=== PATIENT | male | born 1970 | race Caucasian/White ===

== ENCOUNTER 2017-05-31 06:47 | Emergency (ER) | payer MEDICAID, OTHER ==
[2017-05-31] VITALS (7 sets, daily range): BP systolic 97–170; BP diastolic 52–79; PULSE 73–100; RESP 16–22; TEMP 98.2–99.9; O2SAT 95–99
[~2017-05-31] VITALS: Ht 177.8 cm; Wt 99.0 kg
[~2017-05-31 06:47] MED LIST: FERR1TAB36 PO; PROT40TA PO; ZIPR80CA PO
--- NOTE | 2017-05-31 07:18 | PD ---
HPI Chief Complaint: Psychiatric Symptoms Time Seen by Provider: 07:13 Travel History International Travel<30 days: No Contact w/Intl Traveler<30days: No History of Present Illness HPI 46-year-old male brought in under the XYDO act with history of schizophrenic paranoia. Patient called the police himself, stating that he wanted to kill himself but everyone else. Patient has been off his meds for quite some time. He is psychotic, and combative. He is placed in restraints upon arrival. He is an unreliable historian he is allergic to Haldol, and benztropine. PFSH Past Medical History Autoimmune Disease: No Anxiety: No Depression: No Heart Rhythm Problems: No Cancer: No Cardiovascular Problems: No High Cholesterol: No Chest Pain: No Congestive Heart Failure: No Diminished Hearing: No Endocrine: No Gastrointestinal Disorders: No Genitourinary: No Immune Disorder: No Implanted Vascular Access Dvce: No Musculoskeletal: No Neurologic: No Psychiatric: Yes (schizophrenia) Reproductive: No Respiratory: No Schizophrenia: Yes Past Surgical History Abdominal Surgery: No AICD: No Arteriovenous Shunt: No Cardiac Surgery: No Ear Surgery: No Endocrine Surgery: No Genitourinary Surgery: No Gynecologic Surgery: No Insulin Pump: No Joint Replacement: No Neurologic Surgery: No Oral Surgery: No Pacemaker: No Thoracic Surgery: No Other Surgery: Yes (LEFT EYE REMOVED AGE 8, bleeding ulcer repaired ) Social History Alcohol Use: No Tobacco Use: No (never) Substance Use: No Allergies-Medications (Allergen,Severity, Reaction): Coded Allergies: benztropine (Unverified Allergy, Severe, 05/31/17) haloperidol (Unverified Allergy, Severe, 05/31/17) Reported Meds & Prescriptions Reported Meds & Active Scripts Active Protonix (Pantoprazole Sodium) 40 Mg Tab 40 Mg PO BID Reported Ziprasidone 80 Mg Cap 80 Mg PO BID Review of Systems ROS Limitations: Combative, Psychotic Except as stated in HPI: all other systems reviewed are Neg General / Constitutional: No: Fever Eyes: No: Visual changes HENT: No: Headaches Cardiovascular: No: Chest Pain or Discomfort Respiratory: No: Shortness of Breath Gastrointestinal: No: Abdominal Pain Genitourinary: No: Dysuria Musculoskeletal: No: Pain Skin: No Rash Neurologic: No: Weakness Psychiatric: No: Depression Endocrine: No: Polydipsia Hematologic/Lymphatic: No: Easy Bruising Physical Exam Exam Limitations: Combative, Psychotic Narrative GENERAL: Patient appears psychotic and having delusions with pressured speech. SKIN: Warm and dry. Normal color. Normal turgor. No signs of trauma. HEAD: Atraumatic. Normocephalic. EYES: Pupils equal and round. No scleral icterus. Patient is blind in the left eye. ENT: No nasal bleeding or discharge. Mucous membranes pink and moist. Pharynx is clear. Airway is patent. NECK: Trachea midline. Supple. CARDIOVASCULAR: Regular rate and rhythm. RESPIRATORY: No accessory muscle use. Clear to auscultation. Breath sounds equal bilaterally. MUSCULOSKELETAL: Extremities without clubbing, cyanosis, or edema. No obvious deformities. NEUROLOGICAL: Awake and alert. No obvious cranial nerve deficits. Motor grossly within normal limits. Five out of 5 muscle strength in the arms and legs. Normal speech. Data Data Last Documented VS Vital Signs Date Time Temp Pulse Resp B/P (MAP) Pulse Ox O2 Delivery O2 Flow Rate FiO2 05/31/17 09:46 80 18 114/65 (81) 98 Room Air 05/31/17 07:13 99.9 Orders Orders Complete Blood Count With Diff (05/31/17 07:18) Comprehensive Metabolic Panel (05/31/17 07:18) Thyroid Stimulating Hormone (05/31/17 07:18) Iv Access Insert/Monitor (05/31/17 07:18) Cath For Specimen (05/31/17 07:18) Psych Screen (05/31/17 07:18) Sodium Chloride 0.9% Flush (Ns Flush) (05/31/17 07:30) Lorazepam Inj (Ativan Inj) (05/31/17 07:30) Restraints Violent (05/31/17 07:18) Drug Screen, Random Urine (05/31/17 07:18) Alcohol (Ethanol) (05/31/17 07:18) Olanzapine Inj (Zyprexa Inj) (05/31/17 07:30) Labs Laboratory Tests Test 05/31/17 07:45 05/31/17 09:00 White Blood Count 8.4 TH/MM3 Red Blood Count 3.73 MIL/MM3 Hemoglobin 10.5 GM/DL Hematocrit 31.7 % Mean Corpuscular Volume 85.1 FL Mean Corpuscular Hemoglobin 28.1 PG Mean Corpuscular Hemoglobin Concent 33.1 % Red Cell Distribution Width 19.0 % Platelet Count 217 TH/MM3 Mean Platelet Volume 8.3 FL Neutrophils (%) (Auto) 80.4 % Lymphocytes (%) (Auto) 9.0 % Monocytes (%) (Auto) 10.0 % Eosinophils (%) (Auto) 0.4 % Basophils (%) (Auto) 0.2 % Neutrophils # (Auto) 6.7 TH/MM3 Lymphocytes # (Auto) 0.7 TH/MM3 Monocytes # (Auto) 0.8 TH/MM3 Eosinophils # (Auto) 0.0 TH/MM3 Basophils # (Auto) 0.0 TH/MM3 CBC Comment DIFF FINAL Differential Comment Blood Urea Nitrogen 17 MG/DL Creatinine 0.90 MG/DL Random Glucose 83 MG/DL Total Protein 7.7 GM/DL Albumin 4.1 GM/DL Calcium Level 9.5 MG/DL Alkaline Phosphatase 123 U/L Aspartate Amino Transf (AST/SGOT) 33 U/L Alanine Aminotransferase (ALT/SGPT) 34 U/L Total Bilirubin 0.4 MG/DL Sodium Level 142 MEQ/L Potassium Level 4.2 MEQ/L Chloride Level 112 MEQ/L Carbon Dioxide Level 22.0 MEQ/L Anion Gap 8 MEQ/L Estimat Glomerular Filtration Rate 92 ML/MIN Thyroid Stimulating Hormone 3rd Gen 1.880 uIU/ML Ethyl Alcohol Level LESS THAN 3 MG/DL Urine Opiates Screen NEG Urine Barbiturates Screen NEG Urine Amphetamines Screen POS Urine Benzodiazepines Screen NEG Urine Cocaine Screen NEG Urine Cannabinoids Screen NEG MDM Medical Decision Making Medical Screen Exam Complete: Yes Emergency Medical Condition: Yes Medical Record Reviewed: Yes Differential Diagnosis Psychosis. Delusions. Combative. Suicidal ideation. Narrative Course Patient appears medically stable at time of exam. Psychiatric labs ordered as per protocol. Patient was placed in restraints upon arrival. These are maintained. IV access is obtained and the patient is given 2 mg lorazepam IV as well as 10 mg Zyprexa IM. Diagnosis Primary Impression: Medical clearance for psychiatric admission Condition: Stable Blair Hanks May 31, 2017 07:18
[2017-05-31] MEDS ORDERED: LORazepam 2 MG/ML VIAL IV PUSH ONE ×2 (07:30→14:00)
[2017-05-31] MEDS ORDERED: SODIUM CHLORIDE 0.9% FLUSH 10 ML FLUSH IVF PRN (07:30)
[2017-05-31] MEDS ORDERED: OLANZapine IM 10 MG VIAL IM ONE (07:30)
[2017-05-31 08:15] LABS: AUTOMATED NEUTROPHIL # 6.7 TH/MM3 (1.8-7.7); BASOPHIL % 0.2 % (0.0-2.0); EOSINOPHIL % 0.4 % (0.0-4.0); HEMATOCRIT 31.7 % (39.0-51.0); HEMOGLOBIN 10.5 GM/DL (13.0-17.0); LYMPHOCYTE # 0.7 TH/MM3 (1.0-4.8); MEAN CELL VOLUME 85.1 FL (80.0-100.0); MEAN CORPUSCULAR HEMOGLOBIN 28.1 PG (27.0-34.0); MEAN CORPUSCULAR HGB CONC 33.1 % (32.0-36.0); MEAN PLATELET VOLUME 8.3 FL (7.0-11.0); MONOCYTE # 0.8 TH/MM3 (0-0.9); NEUT % 80.4 % (16.0-70.0); PLATELET COUNT 217 TH/MM3 (150-450); RED BLOOD COUNT 3.73 MIL/MM3 (4.50-5.90); WHITE BLOOD COUNT 8.4 TH/MM3 (4.0-11.0)
[2017-05-31] MEDS ORDERED: ZIPR1CAP12 PO (08:25)
[2017-05-31 08:36] LABS: ALBUMIN 4.1 GM/DL (3.4-5.0); ALT (GPT) 34 U/L (12-78); AST (GOT) 33 U/L (15-37); BLOOD UREA NITROGEN 17 MG/DL (7-18); CALCIUM 9.5 MG/DL (8.5-10.1); CHLORIDE 112 MEQ/L (98-107); GLOMERULAR FILTRATION RATE 92 ML/MIN (>89); GLUCOSE,RANDOM 83 MG/DL (74-106); SODIUM (NA) 142 MEQ/L (136-145)
[2017-05-31 08:46] LABS: ALKALINE PHOSPHATASE 123 U/L (45-117); TOTAL BILIRUBIN ADULT 0.4 MG/DL (0.2-1.0); TOTAL PROTEIN 7.7 GM/DL (6.4-8.2)
[2017-05-31] MEDS ORDERED: ONDANSETRON ODT 4 MG TAB PO ONE (23:15)
[2017-06-01 05:40] VITALS: BP 100/57; PULSE 67; RESP 18; TEMP 97.8; O2SAT 100
--- NOTE | 2017-06-01 15:32 | PD ---
Physical Exam Date Seen by Provider: Jun 01, 2017 Time Seen by Provider: 15:31 Narrative 46-year-old male previously medically clear for psychiatric evaluation has been seen and evaluated by psychiatric staff and deemed psychiatrically safe for discharge. He remains medically stable at this time. Follow-up is as per psychiatric note Data Data Last Documented VS Vital Signs Date Time Temp Pulse Resp B/P (MAP) Pulse Ox O2 Delivery O2 Flow Rate FiO2 06/01/17 05:40 97.8 67 18 100/57 (71) 100 Room Air Orders Orders Complete Blood Count With Diff (05/31/17 07:18) Comprehensive Metabolic Panel (05/31/17 07:18) Thyroid Stimulating Hormone (05/31/17 07:18) Iv Access Insert/Monitor (05/31/17 07:18) Cath For Specimen (05/31/17 07:18) Psych Screen (05/31/17 07:18) Sodium Chloride 0.9% Flush (Ns Flush) (05/31/17 07:30) Lorazepam Inj (Ativan Inj) (05/31/17 07:30) Restraints Violent (05/31/17 07:18) Drug Screen, Random Urine (05/31/17 07:18) Alcohol (Ethanol) (05/31/17 07:18) Olanzapine Inj (Zyprexa Inj) (05/31/17 07:30) Lorazepam Inj (Ativan Inj) (05/31/17 14:00) Diet Regular Basic (05/31/17 Dinner) Ondansetron Odt (Zofran Odt) (05/31/17 23:15) Hydroxyzine Pamoate (Vistaril) (05/31/17 23:15) Hydroxyzine Pamoate (Vistaril) (05/31/17 23:15) Diet Regular Basic (06/01/17 Breakfast) Diet Regular Basic (06/01/17 Lunch) Labs Laboratory Tests Test 05/31/17 07:45 05/31/17 09:00 White Blood Count 8.4 TH/MM3 Red Blood Count 3.73 MIL/MM3 Hemoglobin 10.5 GM/DL Hematocrit 31.7 % Mean Corpuscular Volume 85.1 FL Mean Corpuscular Hemoglobin 28.1 PG Mean Corpuscular Hemoglobin Concent 33.1 % Red Cell Distribution Width 19.0 % Platelet Count 217 TH/MM3 Mean Platelet Volume 8.3 FL Neutrophils (%) (Auto) 80.4 % Lymphocytes (%) (Auto) 9.0 % Monocytes (%) (Auto) 10.0 % Eosinophils (%) (Auto) 0.4 % Basophils (%) (Auto) 0.2 % Neutrophils # (Auto) 6.7 TH/MM3 Lymphocytes # (Auto) 0.7 TH/MM3 Monocytes # (Auto) 0.8 TH/MM3 Eosinophils # (Auto) 0.0 TH/MM3 Basophils # (Auto) 0.0 TH/MM3 CBC Comment DIFF FINAL Differential Comment Blood Urea Nitrogen 17 MG/DL Creatinine 0.90 MG/DL Random Glucose 83 MG/DL Total Protein 7.7 GM/DL Albumin 4.1 GM/DL Calcium Level 9.5 MG/DL Alkaline Phosphatase 123 U/L Aspartate Amino Transf (AST/SGOT) 33 U/L Alanine Aminotransferase (ALT/SGPT) 34 U/L Total Bilirubin 0.4 MG/DL Sodium Level 142 MEQ/L Potassium Level 4.2 MEQ/L Chloride Level 112 MEQ/L Carbon Dioxide Level 22.0 MEQ/L Anion Gap 8 MEQ/L Estimat Glomerular Filtration Rate 92 ML/MIN Thyroid Stimulating Hormone 3rd Gen 1.880 uIU/ML Ethyl Alcohol Level LESS THAN 3 MG/DL Urine Opiates Screen NEG Urine Barbiturates Screen NEG Urine Amphetamines Screen POS Urine Benzodiazepines Screen NEG Urine Cocaine Screen NEG Urine Cannabinoids Screen NEG MDM Medical Record Reviewed: Yes Supervised Visit with MALIKA: Yes Narrative Course 46-year-old male previously medically clear for psychiatric evaluation has been seen and evaluated by psychiatric staff and deemed psychiatrically safe for discharge. He remains medically stable at this time. Follow-up is as per psychiatric note Diagnosis Primary Impression: Medical clearance for psychiatric admission Disposition: DISCHARGE HOME Condition: Stable Blair Hanks Jun 01, 2017 15:32
--- NOTE | 2017-06-01 15:45 | PD ---
History of Present Illness Chief Complaint: Psychiatric Symptoms Time Seen by Provider: 15:00 Travel History International Travel<30 Days: No Contact w/Intl Traveler<30days: No Known affected area: No Legal Status Legal Status: [place] Act [place] Act Signed By: Wilmar Little History of Present Illness: History of Present Illness HPI 46-year-old male with history of schizophrenia who is brought in under the [place] act initiated by law enforcement. The [place] act states " subject made statements of wanting to kill himself and others. Subject stated that he is schizophrenic and can't take it anymore." Other information provided were is that the patient's mother called the police earlier in the morning stating that the patient was locked in the house and that she was afraid of him and was going to stay with family members and another town. She reported to police that he was supposed to appear in court Friday morning but he did not appear in court. The patient on arrival to [facility] ED was agitated and required ETO as well as restraints. After receiving the ETO the patient was monitored in J pod over extended period of time. He slept well during the night. He has presented no other behavioral concerns and no suicidality. Electronic medical record is review the patient has been seen and evaluated in our ED in 2008. At that time he was taken to [facility] for further treatment. Toxicology report at this time is positive for amphetamines. Patient is seen in J pod with Elena Carver RN present. The patient is alert, oriented, calm, engaging and cooperative. The patient's speech is clear, logical, goal-directed. His thoughts are logical, organized. He does not appear internally stimulated and denies auditory hallucinations. The patient states that the reason why he was placed under [place] act was because he was having thoughts of suicide and homicide, and he attributes this to not having taken his meds for a couple of days. He goes on to state" if I miss a dose or several doses I go off my rocker. I left my medication and my friend's house and was involved in an argument with them so I can go back for them." He tells me that he is compliant with his medications for the most part and that he sees Alcides at [facility]. The patient minimizes his use of methamphetamine. He is currently denying any suicidal or homicidal ideation, intent or plan. He states that he is not a danger to himself or to anyone else. He has plans on returning to an apartment that he shares with some roommates. He also plans on following up with his outpatient provider at [facility]. PFSH Past Medical History Autoimmune Disease: No Anxiety: No Depression: No Heart Rhythm Problems: No Cancer: No Cardiovascular Problems: No High Cholesterol: No Chest Pain: No Congestive Heart Failure: No Diminished Hearing: No Endocrine: No Gastrointestinal Disorders: No Genitourinary: No Hypertension: No Immune Disorder: No Implanted Vascular Access Dvce: No Musculoskeletal: No Neurologic: No Psychiatric: Yes (schizophrenia) Reproductive: No Respiratory: No Schizophrenia: Yes ?: Not Past Surgical History Abdominal Surgery: No AICD: No Arteriovenous Shunt: No Cardiac Surgery: No Ear Surgery: No Endocrine Surgery: No Genitourinary Surgery: No Gynecologic Surgery: No Insulin Pump: No Joint Replacement: No Neurologic Surgery: No Oral Surgery: No Pacemaker: No Thoracic Surgery: No Other Surgery: Yes (LEFT EYE REMOVED AGE 8, bleeding ulcer repaired ) Psychiatric History Psychiatric History Hx Psychiatric Treatment: HAS HISTORY COSTA IKE IN 2001 AND 2002 AND last contact in 2008. Receives outpatient care at [facility] and sees Alcides. History of Inpatient Treatment: Yes ([facility]) Guns or firearms in home: No Social History Single, male living with roommates. On disability. Recent incarceration for driving with a suspended license. Hx Alcohol Use: No Hx Tobacco Use: No (never) Hx Substance Use: Yes Substance Use Type: Amphetamines-Stimulants Hx of Substance Use Treatment: No Family Psychiatric History Negative Allergies-Medications (Allergen,Severity, Reaction): Coded Allergies: benztropine (Unverified Allergy, Severe, 05/31/17) haloperidol (Unverified Allergy, Severe, 05/31/17) Reported Meds & Prescriptions Reported Meds & Active Scripts Active Protonix (Pantoprazole Sodium) 40 Mg Tab 40 Mg PO BID Reported Ziprasidone 80 Mg Cap 80 Mg PO BID Review of Systems Eyes: COMPLAINS OF: Vision loss (left eye prosthesis) Psychiatric: COMPLAINS OF: Agitation Except as stated in HPI: all other systems reviewed are Neg Mental Status Examination Appearance: Disheveled, Malodorous Consciousness: Alert Orientation: x4 Motor Activity: Normal gait Speech: Unremarkable Language: Adequate Fund of Knowledge: Adequate Attention and Concentration: Adequate Memory: Unremarkable Mood: Appropriate Affect: Appropriate Thought Process & Associations: Intact, Logical, Goal directed Thought Content: Appropriate Hallucination Type: None Delusion Type: None Suicidal Ideation: No Suicidal Plan: No Suicidal Intention: No Homicidal Ideation: No Homicidal Plan: No Homicidal Intention: No Insight: Fair Judgment: Impulsive MDM Medical Decision Making Medical Record Reviewed: Yes Assessment/Plan 46-year-old male with history of schizophrenia, history of substance use disorder, most recently use of methamphetamine, who was placed under [place] act after the police were called by the patient's mother stating that the patient was locked in the house and that she was afraid of him. The patient reported to the police that he wanted to kill himself and others. The statements were made when the patient was under the influence of methamphetamine as well as reporting that he had not taken his psychiatric medication. The patient upon arrival was agitated and required ETO's. After extended period of observation in [facility] he presented no further behavioral concerns and no agitation. There was no suicidality. Upon examination this afternoon the patient presents no psychosis, no tavia, no suicidal or homicidal ideation. He contracts for safety and is cognitively intact to do so. He will follow-up with Alcides at [facility]. He has medications with him and he states that he intends on taking them. At this time he does not meet criteria for Costa act. The Costa act is lifted. Psychiatrically clear for discharge from the ED. Orders Orders Diet Regular Basic (05/31/17 Dinner) Ondansetron Odt (Zofran Odt) (05/31/17 23:15) Hydroxyzine Pamoate (Vistaril) (05/31/17 23:15) Hydroxyzine Pamoate (Vistaril) (05/31/17 23:15) Diet Regular Basic (06/01/17 Breakfast) Diet Regular Basic (06/01/17 Lunch) Results Vital Signs Date Time Temp Pulse Resp B/P (MAP) Pulse Ox O2 Delivery O2 Flow Rate FiO2 06/01/17 05:40 97.8 67 18 100/57 (71) 100 Room Air 05/31/17 20:55 98.2 73 16 97/52 (67) 95 Room Air 05/31/17 18:16 98.6 77 16 109/55 (73) 98 Room Air 05/31/17 16:17 78 18 122/67 (85) 98 Diagnosis Primary Impression: Amphetamine abuse Additional Impression: Schizophrenia Psychiatrically Cleared: Yes Med/ Other Pt Specific Info: No Change to Meds Disposition: 01 DISCHARGE HOME Condition: Stable Problem Qualifiers Additional Impression: Schizophrenia Qualified Codes: F20.9 - Schizophrenia, unspecified Marybeth Elise [facility] Jun 01, 2017 15:45
== END 2017-06-01 15:39 | disposition home or self-care (01) ==
LOC: NEPD 06:47 → NEPJ 06-01 15:39
DX: F20.9 Schizophrenia, unspecified (principal); F15.10 Other stimulant abuse, uncomplicated; Z79.899 Other long term (current) drug therapy; Z88.8 Allergy status to other drugs, medicaments and biological substances
CPT/HCPCS: 80053; 80307; 84443; 85025; 96372; 96374; 96376; 99284; J2060

== ENCOUNTER 2017-08-12 12:52 | Inpatient (IN) | payer MEDICAID, OTHER ==
[2017-08-12] VITALS (40 sets, daily range): BP systolic 79–135; BP diastolic 48–87; PULSE 80–159; RESP 7–26; TEMP 97–98.4; O2SAT 86–100
[~2017-08-12] VITALS: Ht 182.9 cm; Wt 75.5 kg
[~2017-08-12 12:52] MED LIST changes: -FERR1TAB36 PO; +ZIPR1CAP12 PO; -ZIPR80CA PO
[2017-08-12] MEDS ORDERED: PANTOPRAZOLE INJ 80 MG in SODIUM CHLORIDE 0.9% INJ 35 ML IV ONE ×2 (13:19→15:15)
[2017-08-12] MEDS ORDERED: SODIUM CHLOR 0.9% 1000 ML INJ 1,000 ML IV SCH (13:19)
[2017-08-12] MEDS ORDERED: SODIUM CHLORIDE 0.9% FLUSH 10 ML FLUSH IVF PRN (13:30)
[2017-08-12] MEDS ORDERED: GEOD80CA PO (13:31)
[2017-08-12 13:36] LABS: AUTOMATED NEUTROPHIL # 11.2 TH/MM3 (1.8-7.7); BASOPHIL % 0.1 % (0.0-2.0); EOSINOPHIL % 0.1 % (0.0-4.0); HEMATOCRIT 22.7 % (39.0-51.0); LYMPH % 6.1 % (9.0-44.0); LYMPHOCYTE # 0.8 TH/MM3 (1.0-4.8); MEAN CELL VOLUME 77.9 FL (80.0-100.0); MEAN CORPUSCULAR HEMOGLOBIN 23.9 PG (27.0-34.0); MEAN CORPUSCULAR HGB CONC 30.8 % (32.0-36.0); MEAN PLATELET VOLUME 7.8 FL (7.0-11.0); MONO % 7.1 % (0.0-8.0); MONOCYTE # 0.9 TH/MM3 (0-0.9); NEUT % 86.6 % (16.0-70.0); PLATELET COUNT 295 TH/MM3 (150-450); RED BLOOD COUNT 2.91 MIL/MM3 (4.50-5.90); RED CELL DISTRIBUTION WIDTH 17.4 % (11.6-17.2); WHITE BLOOD COUNT 12.9 TH/MM3 (4.0-11.0)
[2017-08-12 13:53] LABS: INTERNATIONAL NORMALIZED RATIO 1.1 RATIO; PROTHROMBIN TIME - PATIENT 11.4 SEC (9.8-11.6)
[2017-08-12 13:55] LABS: ALBUMIN 2.8 GM/DL (3.4-5.0); AST (GOT) 12 U/L (15-37); BICARBONATE 18.1 MEQ/L (21.0-32.0); BLOOD UREA NITROGEN 28 MG/DL (7-18); CALCIUM 9.4 MG/DL (8.5-10.1); CHLORIDE 107 MEQ/L (98-107); CREATININE 1.46 MG/DL (0.60-1.30); GLOMERULAR FILTRATION RATE 52 ML/MIN (>89); GLUCOSE,RANDOM 140 MG/DL (74-106); SODIUM (NA) 137 MEQ/L (136-145)
[2017-08-12 13:56] LABS: ALT (GPT) 16 U/L (12-78)
[2017-08-12 13:58] LABS: ALKALINE PHOSPHATASE 73 U/L (45-117); TOTAL BILIRUBIN ADULT 0.1 MG/DL (0.2-1.0); TOTAL PROTEIN 6.1 GM/DL (6.4-8.2)
[2017-08-12] MEDS ORDERED: NURSING INFORMATION XX SCH (14:00)
[2017-08-12] MEDS ORDERED: CHLORHEXIDINE GLUCONATE 2 % 1 PACK (2 CLOTHS) TOP PRN (14:00)
[2017-08-12] MEDS ORDERED: GLUCAGON 1 MG/ML VIAL OTHER PRN (14:00)
[2017-08-12] MEDS ORDERED: DEXTROSE 50% IN WATER 50 ML VIAL(D50) IV PUSH PRN (14:00)
[2017-08-12] MEDS: INSULIN NovoLIN REGULAR SUPPLEMENTAL SCALE SQ SCH ×3 (14:00→20:55)
--- NOTE | 2017-08-12 14:15 | PD ---
HPI Chief Complaint: Bleeding Time Seen by Provider: 13:15 Travel History International Travel<30 days: No Contact w/Intl Traveler<30days: No Traveled to known affect area: No History of Present Illness HPI A 46-year-old man presents to the emergency department complaining of lightheadedness, shortness of breath, dyspnea on exertion, near syncope. He has a history of an esophageal ulcer with severe GI bleeding in the past. He was feeling fine until about yesterday when the symptoms started fairly abruptly. He has some chest pains or shortness of breath with it. Has not noticed any dark stools. Patient has difficulty giving complete history due to symptoms. History Past Medical History Narrative Medical Esophageal ulcers Hemorrhoids Social History Alcohol Use: No Tobacco Use: No Allergies-Medications (Allergen,Severity, Reaction): Coded Allergies: benztropine (Unverified Allergy, Severe, 08/12/17) haloperidol (Unverified Allergy, Severe, 08/12/17) Reported Meds & Prescriptions Reported Meds & Active Scripts Active Protonix (Pantoprazole Sodium) 40 Mg Tab 40 Mg PO BID Reported Geodon (Ziprasidone) 80 Mg Cap 160 Mg PO DAILY Review of Systems Except as stated in HPI: all other systems reviewed are Neg Physical Exam Narrative GENERAL: Well-appearing 46-year-old man, moderate distress per SKIN: Pale and clammy. HEAD: Atraumatic. Normocephalic. EYES: Pupils equal and round. No scleral icterus. No injection or drainage. Pale conjunctiva. ENT: No nasal bleeding or discharge. Mucous membranes pink and moist. NECK: Trachea midline. No JVD. CARDIOVASCULAR: Heart rate rapid. No appreciable murmurs. RESPIRATORY: No accessory muscle use. Clear to auscultation. Breath sounds equal bilaterally. GASTROINTESTINAL: Abdomen soft, non-tender, nondistended. Hepatic and splenic margins not palpable. RECTAL: Hard dark colored stool in the rectal vault. Guaiac positive. MUSCULOSKELETAL: No obvious deformities. No clubbing. No cyanosis. No edema. NEUROLOGICAL: Decreased alertness. No obvious cranial nerve deficits. Motor grossly within normal limits. Normal speech. PSYCHIATRIC: Appropriate mood and affect; insight and judgment normal. Data Data Last Documented VS Vital Signs Date Time Temp Pulse Resp B/P (MAP) Pulse Ox O2 Delivery O2 Flow Rate FiO2 08/12/17 14:10 98.0 108 20 81/48 (59) 100 Nasal Cannula 2.00 Orders Orders Complete Blood Count With Diff (08/12/17 13:19) Comprehensive Metabolic Panel (08/12/17 13:19) Lipase (08/12/17:19) Prothrombin Time / Inr (Pt) (08/12/17:19) Act Partial Throm Time (Ptt) (08/12/17 13:19) Urinalysis - C+S If Indicated (08/12/17:) Type And Screen (08/12/17 13:19) Red Blood Cells (Rbc) (08/12/17 13:19) Blood Product Administration (08/12/17 13:) Ecg Monitoring (08/12/17:) Iv Access Insert/Monitor (08/12/17:) Oximetry (08/12/17:) Sodium Chlor 0.9% 1000 Ml Inj (Ns 1000 M (08/12/17 13:19) Sodium Chloride 0.9% Flush (Ns Flush) (08/12/17 13:30) Sodium Chloride 0.9... W/Pantoprazole In (08/12/17 13:19) Sodium Chloride 0.9... W/Pantoprazole In (08/12/17 13:19) Blood Culture (08/12/17 13:29) Lactic Acid (08/12/17 13:29) Admit To Inpatient (08/12/17 ) Code Status (08/12/17 13:53) Vital Signs (Adult) VALERIA.Q1H (08/12/17 13:53) Activity Bed Rest (08/12/17 13:53) Elevate Head Of Bed (08/12/17 13:53) Neuro Checks . ORDERED (08/12/17 13:53) Complete Blood Count With Diff (08/13/17 04:00) Comprehensive Metabolic Panel (08/13/17 04:00) Magnesium (Mg) (08/13/17 04:00) Phosphorus (Po4) (08/13/17 04:00) Consult Gastroenterology (08/12/17 ) Civil Preparedness Coordinator / Telemetry VALERIA.Q8H (08/12/17 13:53) ^ Initiate Protocol (08/12/17 13:53) Instruction (08/12/17 13:53) Nursing Information ([facility] Nursing Inform (08/12/17 14:00) Chlorhexidine 2% Cloth (Chlorhexidine 2% (08/13/17 04:00) Chlorhexidine 2% Cloth (Chlorhexidine 2% (08/12/17 14:00) Mrsa Pcr Surveillance (08/12/17 13:53) Inpatient Certification (08/12/17 ) Sodium Chlor 0.9% 1000 Ml Inj (Ns 1000 M (08/12/17 14:00) Blood Glucose Goal (Criteria) (08/12/17 13:57) Hypoglycemia 70 Mg/Dl Or < (08/12/17 13:57) Notify Dr: Other (08/12/17 13:57) Dextrose 50% In Russell (Vial) Inj (D50w (Vi (08/12/17 14:00) Glucagon Inj (Glucagon Inj) (08/12/17 14:00) Insulin Human Reg Supp Scale (Novolin R (08/12/17 14:00) Admit Order (Ed Use Only) (08/12/17 ) Urinalysis - C+S If Indicated (08/12/17 14:04) (Hub Use Only)Inp Phy Cons/Ref (08/12/17 ) Labs Laboratory Tests Test 08/12/17 13:20 08/12/17 13:46 White Blood Count 12.9 TH/MM3 Red Blood Count 2.91 MIL/MM3 Hemoglobin 7.0 GM/DL Hematocrit 22.7 % Mean Corpuscular Volume 77.9 FL Mean Corpuscular Hemoglobin 23.9 PG Mean Corpuscular Hemoglobin Concent 30.8 % Red Cell Distribution Width 17.4 % Platelet Count 295 TH/MM3 Mean Platelet Volume 7.8 FL Neutrophils (%) (Auto) 86.6 % Lymphocytes (%) (Auto) 6.1 % Monocytes (%) (Auto) 7.1 % Eosinophils (%) (Auto) 0.1 % Basophils (%) (Auto) 0.1 % Neutrophils # (Auto) 11.2 TH/MM3 Lymphocytes # (Auto) 0.8 TH/MM3 Monocytes # (Auto) 0.9 TH/MM3 Eosinophils # (Auto) 0.0 TH/MM3 Basophils # (Auto) 0.0 TH/MM3 CBC Comment DIFF FINAL Differential Comment Prothrombin Time 11.4 SEC Prothromb Time International Ratio 1.1 RATIO Activated Partial Thromboplast Time 21.1 SEC Blood Urea Nitrogen 28 MG/DL Creatinine 1.46 MG/DL Random Glucose 140 MG/DL Total Protein 6.1 GM/DL Albumin 2.8 GM/DL Calcium Level 9.4 MG/DL Alkaline Phosphatase 73 U/L Aspartate Amino Transf (AST/SGOT) 12 U/L Alanine Aminotransferase (ALT/SGPT) 16 U/L Total Bilirubin 0.1 MG/DL Sodium Level 137 MEQ/L Potassium Level 3.6 MEQ/L Chloride Level 107 MEQ/L Carbon Dioxide Level 18.1 MEQ/L Anion Gap 12 MEQ/L Estimat Glomerular Filtration Rate 52 ML/MIN Lipase 156 U/L Lactic Acid Level 3.9 mmol/L MDM Medical Decision Making Medical Screen Exam Complete: Yes Emergency Medical Condition: Yes Interpretation(s) My review of EKG: Sinus tachycardia at a rate of 113, ND interval is a little bit short at 116, normal axis, no definite evidence of acute ischemia. LABS: CBC remarkable for white count 12.9, hemoglobin 7.0 CMP shows a little bit of acidosis, BUN and creatinine will bit elevated Lipase normal Lactate pending Coags unremarkable Differential Diagnosis GI bleed, weakness, hemorrhagic shock, other Narrative Course 46-year-old male presents to the emergency department tachycardic hypotensive with evidence of GI bleed. He appeared pale, and shock on initial assessment. 2 large bore IV accesses were established. He was given 1 L of IV fluids in emergency release 2 units of packed red blood cells. Labs were obtained. I spoke with Dr. Paul, from . He will come the bedside to evaluate patient. I also spoke with the financial management analyst, who will admit the patient to the unit. Critical Care Narrative Aggregate critical care time was 40 minutes. Time to perform other separately billable procedures was not included in the critical care time. My time did not include minutes spent treating any other patients simultaneously or on activities that did not directly contribute to the patient's treatment. The services I provided to this patient were to treat and/or prevent clinically significant deterioration that could result in: , shock, worsening acidosis , other. I provided critical care services requiring my management, as noted below: Chart data review, documentation time, medication orders and management, vital sign assessments/reviewing monitor data, ordering and reviewing lab tests, ordering and interpreting/reviewing x-rays and diagnostic studies, care of the patient and discussion of the patient with the admitting physicians. Diagnosis Primary Impression: GI bleed Additional Impressions: Esophageal ulcer Hemorrhagic shock Admitting Information Admitting Physician Requests: Admit Skip Nickerson MD August 12, 2017 14:15
[2017-08-12] MEDS: SODIUM CHLOR 0.9% 1000 ML INJ 1,000 ML IV SCH ×3 (14:27→23:23)
[2017-08-12] MEDS: PANTOPRAZOLE INJ 80 MG in SODIUM CHLORIDE 0.9% INJ 100 ML IV SCH ×3 (14:27→23:22)
[2017-08-12] MEDS ORDERED: SODIUM CHLOR 0.9% 1000 ML INJ 1,000 ML IV ONE (15:00)
--- NOTE | 2017-08-12 15:01 | PD.CONS ---
HPI History of Present Illness This is a 46 year old male was in his usual state of health until yesterday 08/11 when he experienced an acute onset of lightheadedness and shortness of breath in which he felt like he was going to pass out. Patient also noted symptoms of heartburn and nausea, but no vomiting. Patient has a history of esophageal stricture and esophageal ulcers as well as bleeding hemorrhoids. Currently patient denies any abdominal pain and no obvious bright red rectal bleeding and denies any melena stools to his knowledge. Patient is unable to lie flat on stretcher and is currently being transfused with packed RBCs. Hemoglobin on admission was 7 and WBC count was 12.9. After reviewing patient' s history , known schizophrenia, esophageal ulcers with GI bleed, anemia and esophageal stenosis. Patient also has history of amphetamine abuse. Patient appears mildly anxious and does not want to answer any further questions but does note that his last GI procedures were at [facility] with Dr. Moss, unknown date. Patient notes eating tacos approximately 11 AM this morning, but has been made n.p.o. since admission to the hospital. Sinus tachycardia heart rate 107 BP systolic 86 with IV fluid bolus infusing. Patient is answering simple questions appropriately but does have some mild anxiety noted. (Kerri Dominguez) PFSH Past Medical History Schizophrenia Pneumothorax right side Fracture of the right olecranon process Anemia Esophageal stenosis Schizophrenia Amphetamine abuse Hemorrhagic shock Esophageal ulcer GI bleed Past Surgical History Previous EGD and probable sigmoid or colonoscopy date unknown at the [facility] (Kerri Dominguez) Coded Allergies: benztropine (Unverified Allergy, Severe, 08/12/17) haloperidol (Unverified Allergy, Severe, 08/12/17) Medications Administered Medications Medications (Trade) Dose Ordered Sig/Edgardo Route PRN Reason Start Time Stop Time Status Last Admin Dose Admin Sodium Chloride (NS Flush) 2 ml UNSCH PRN IVF FLUSH AFTER USING IV ACCESS 08/12/17 13:30 08/12/17 13:34 Pantoprazole Sodium 80 mg/ Sodium Chloride 100 ml @ 10 mls/hr Q10H IV 08/12/17 13:19 08/12/17 14:27 Sodium Chloride 1,000 ml @ 125 mls/hr Q8H IV 08/12/17 14:00 08/12/17 14:27 Family History No family history of colon cancer Social History History of amphetamine usage, states none now Denies any tobacco or alcohol use (Kerri Dominguez) Review of Systems Constitutional: COMPLAINS OF: Fatigue, Dizziness Gastrointestinal: COMPLAINS OF: Nausea, Difficulty Swallowing (Kerri Dominguez) GI Exam Vitals I&O Vital Signs Date Time Temp Pulse Resp B/P (MAP) Pulse Ox O2 Delivery O2 Flow Rate FiO2 08/12/17 14:35 97.8 109 21 91/51 100 08/12/17 14:32 110 24 90/53 (65) 100 Nasal Cannula 2.00 08/12/17 14:24 97.8 107 19 83/48 (60) 100 Nasal Cannula 2.00 08/12/17 14:24 97.8 107 22 83/48 100 08/12/17 14:16 111 20 83/48 (60) 100 Nasal Cannula 2.00 08/12/17 14:13 108 20 81/48 100 08/12/17 14:10 98.0 108 20 81/48 (59) 100 Nasal Cannula 2.00 08/12/17 14:08 98.0 109 21 88/49 100 08/12/17 14:00 107 19 89/53 100 08/12/17 13:59 109 20 87/51 (63) 100 Nasal Cannula 2.00 08/12/17 13:56 98.0 109 20 87/51 100 08/12/17 13:51 97.9 109 21 82/48 100 08/12/17 13:48 97.6 110 21 82/51 (61) 100 Nasal Cannula 2.00 08/12/17 13:33 Nasal Cannula 2.00 08/12/17 13:33 116 22 79/49 (59) 100 Nasal Cannula 2.00 08/12/17 13:06 97.6 159 22 79/52 (61) 99 I/O 08/11/17 08/11/17 08/11/17 08/12/17 08/12/17 08/12/17 07:00 15:00 23:00 07:00 15:00 23:00 Intake Total 1416 ml Balance 1416 ml Intake IV Total 1000 ml Packed Cells 400 ml Blood Product IV Normal Saline Flush 16 ml Laboratory Test 08/12/17 13:20 08/12/17 13:46 White Blood Count 12.9 TH/MM3 Red Blood Count 2.91 MIL/MM3 Hemoglobin 7.0 GM/DL Hematocrit 22.7 % Mean Corpuscular Volume 77.9 FL Mean Corpuscular Hemoglobin 23.9 PG Mean Corpuscular Hemoglobin Concent 30.8 % Red Cell Distribution Width 17.4 % Platelet Count 295 TH/MM3 Mean Platelet Volume 7.8 FL Neutrophils (%) (Auto) 86.6 % Lymphocytes (%) (Auto) 6.1 % Monocytes (%) (Auto) 7.1 % Eosinophils (%) (Auto) 0.1 % Basophils (%) (Auto) 0.1 % Neutrophils # (Auto) 11.2 TH/MM3 Lymphocytes # (Auto) 0.8 TH/MM3 Monocytes # (Auto) 0.9 TH/MM3 Eosinophils # (Auto) 0.0 TH/MM3 Basophils # (Auto) 0.0 TH/MM3 CBC Comment DIFF FINAL Differential Comment Prothrombin Time 11.4 SEC Prothromb Time International Ratio 1.1 RATIO Activated Partial Thromboplast Time 21.1 SEC Blood Urea Nitrogen 28 MG/DL Creatinine 1.46 MG/DL Random Glucose 140 MG/DL Total Protein 6.1 GM/DL Albumin 2.8 GM/DL Calcium Level 9.4 MG/DL Alkaline Phosphatase 73 U/L Aspartate Amino Transf (AST/SGOT) 12 U/L Alanine Aminotransferase (ALT/SGPT) 16 U/L Total Bilirubin 0.1 MG/DL Sodium Level 137 MEQ/L Potassium Level 3.6 MEQ/L Chloride Level 107 MEQ/L Carbon Dioxide Level 18.1 MEQ/L Anion Gap 12 MEQ/L Estimat Glomerular Filtration Rate 52 ML/MIN Lipase 156 U/L Lactic Acid Level 3.9 mmol/L Date/Time Source Procedure Growth Status 08/12/17 13:45 Blood Peripheral Aerobic Blood Culture Pending Received 08/12/17 13:45 Blood Peripheral Anaerobic Blood Culture Pending Received Physical Examination HEENT: Left eye patch, normocephalic; atraumatic; pale NECK: Neck is supple, thin CHEST: Chest is clear , no rhonchi or wheezing CARDIAC: Regular rhythm, sinus tachycardia heart rate 107 ABDOMEN: Flat, soft, nondistended, nontender; no hepatosplenomegaly; bowel sounds are present in all four quadrants. EXTREMITIES: No lower extremity edema. SKIN: Pale, no rash; no jaundice. CASH CLERK: Mild anxiety, answering minimal simple questions (Kerri Dominguez) Assessment and Plan Assessment: (1) GI bleed ICD Codes: K92.2 - Gastrointestinal hemorrhage, unspecified Status: Acute Plan Symptomatic anemia, acute onset of dizziness, lightheadedness with near syncopal episode 24 hours ago. Patient has a history of GI bleed and esophageal ulcers as well as an esophageal stricture according to the old records. Notes EGD done at [facility] with Dr. Baker, unknown timing. Current hemoglobin 7 patient is currently being transfused and IV fluids infusing. Blood pressure with some mild hypotension systolic 86, head of bed flat. Probably secondary to his GI bleed. No hematemesis or melena stools. Old records show tight narrowing stenosis of the mid to distal esophagus her barium swallow x-ray on February 15, 2016. Patient ate 2 tacos approximately 11 PM, but he is now n.p.o. Currently patient has some sinus tachycardia heart rate around 107, hypotension with systolic blood pressure around 86 patient is being transfused and IV fluids bolus. Nausea with dyspepsia notes symptoms worsened for the past 2 days. No vomiting History of hemorrhoids patient also states with some bleeding in the past, no current rectal bleeding now. Patient does state he has had them cauterized in the past. Patient has significant history of schizophrenia Plan N.p.o. for now, Monitor labs Continue transfuse and monitor for any signs of acute hematemesis or bright red rectal bleeding. Consent for EGD with dilation in a.m. unless patient becomes unstable in which EGD could be done on an emergent basis, patient ate 2 tacos at approximately 11 AM Protonix bolus 1 and drip, IV hydration and IV fluids Further recommendations to follow Patient was seen per myself Dr. Paul, note was written on his behalf (Kerri Dominguez) Plan Patient was seen and examined, agree with above note, we will plan on doing endoscopy or evaluation of peptic ulcer disease, esophagitis, or other etiologies. We will monitor H&H and give him packed RBC as needed (Ashwin Paul MD) Kerri Dominguez August 12, 2017 15:01 Ashwin Paul MD August 13, 2017 20:50
--- NOTE | 2017-08-12 15:27 | RADRPT ---
EXAM DATE/TIME: 08/12/2017 15:15 [place] COMPARISON: No previous studies available for comparison. INDICATIONS : Short of breath. MEDICAL HISTORY : None. SURGICAL HISTORY : None. ENCOUNTER: Initial ACUITY: 1 day PAIN SCORE: 5/10 LOCATION: Bilateral chest FINDINGS: A single view of the chest demonstrates the lungs to be symmetrically aerated without evidence of mas s, infiltrate or effusion. The cardiomediastinal contours are unremarkable. Osseous structures are intact. CONCLUSION: The lungs are clear. Lexx Sung MD on August 12, 2017 at 15:25 Board Certified Radiologist. This report was verified electronically.
--- NOTE | 2017-08-12 15:53 | MH ---
cc: Jose Gonzalez MD DATE OF ADMISSION: 08/12/2017 HISTORY OF PRESENT ILLNESS: The patient is a 46-year-old male with a past medical history of esophageal ulcer and stricture, who presented to [facility] ED with complaints of feeling dizzy, lightheaded, generalized weakness and shortness of breath with exertion. The patient has history of GI bleeding in the past. He underwent upper endoscopy on 02/15/2017, which showed grade IV esophagitis. In addition to esophageal ulcer and stricture. On arrival to the ED, he was tachycardic and hypotensive with systolic blood pressure in the 80s. His laboratory data was significant for hemoglobin of 7.0 and he had a lactic acid level of 3.9. The patient is currently receiving 2 units of emergency release of packed red blood cells and 1 liter of normal saline. GI service was notified. When seen in the ER, the patient is awake, alert, on 2 liter nasal cannula and his blood pressure improved to 93/52 with a MAP of 66. The patient denies any chest pain, orthopnea, PND or edema of the lower extremities. In addition, he denies any nausea, vomiting or abdominal pain. PAST MEDICAL HISTORY: Significant for prior history of GI bleed, history of schizophrenia, peptic ulcer disease, esophageal stricture, and hemorrhoids. PAST SURGICAL HISTORY: Prosthetic left eye, previous upper endoscopy, and previous right elbow surgery. ALLERGIES: HALDOL AND COGENTIN. SOCIAL HISTORY: Nonsmoker and nondrinker. FAMILY HISTORY: Noncontributing to present illness. MEDICATIONS: Reported medications include Protonix and Geodon. REVIEW OF SYSTEMS: As per HPI. Rest of review of systems unremarkable. PHYSICAL EXAMINATION: GENERAL: This is a 46-year-old male lying in bed, in no acute respiratory distress. VITAL SIGNS: Temperature 97.8, pulse of 107, respiratory rate 24, blood pressure 93/52 with MAP 66, saturation 100% on 2 liter oxygen. HEENT: Atraumatic, normocephalic. Pupils are equal, round, reactive to light and accommodation. Extraocular muscles intact. Conjunctivae pink. Nonicteric sclerae. Oral mucosa within normal. NECK: Supple. No JVD, adenopathy, thyromegaly. Trachea midline. HEART: Tachycardic. Normal S1, S2. No murmurs, rubs or gallops noted. LUNGS: Bilateral equal air entry. No rales or wheezing. ABDOMEN: Soft, nontender, nondistended, positive bowel sounds. EXTREMITIES: No cyanosis, clubbing, or edema. NEUROLOGIC: No focal sensory deficit. LABORATORY DATA: WBC 12.9, hemoglobin 7, hematocrit 22, platelet count of 295. Sodium 137, potassium 3.6, chloride 107, CO2 of 18, BUN 28, creatinine 1.46, glucose of 140. Lactic acid 3.9. INR 1.1, PT 11.4, PTT 21. RADIOGRAPHIC STUDIES: None available. IMPRESSION: 1. Gastrointestinal bleeding. 2. Anemia. 3. Hypotension. 4. Acute kidney injury. 5. Lactic acidemia. 6. History of esophageal ulcer and stricture. 7. History of schizophrenia. 8. Mild leukocytosis, likely stress related. RECOMMENDATIONS: 1. Monitor neuro status closely. 2. Continue on oxygen. Maintain sats above 92%. 3. Bronchodilators in the form of DuoNeb q.6h plus q.2h p.r.n. for shortness of breath. 4. I will obtain a baseline chest x-ray. 5. Monitor heart rate and blood pressure closely and maintain MAP greater than 65 mmHg. Serial lactic acid. Monitor until clear. 6. He was given 1 liter of crystalloid in the ED. We will give an additional 1 liter bolus of normal saline and place on maintenance fluids, NS at 125 mL an hour. 7. Monitor renal function, I's and O's and avoid nephrotoxins. Electrolyte replacement as needed. 8. Continue with IV fluids as stated above. 9. Keep n.p.o. and continue with Protonix drip. The patient was seen by GI service in the ED and plan to proceed with upper endoscopy in a.m. 10. Monitor for signs of infections, which include fever and WBC. I will obtain a urinalysis with culture if indicated and chest x-ray as stated above. 11. Monitor CBC. The patient for transfusion 2 units of emergency related red blood cells. We will check H and H q.6 hours. 12. Sliding scale insulin if needed for glycemic control. 13. Gastrointestinal prophylaxis with the patient on Protonix drip. DVT prophylaxis with SCDs. Chemical anticoagulation prophylaxis contraindicated in the setting of gastrointestinal bleed. 14. The patient is critically ill with hypotension, renal failure, symptomatic anemia and GI bleed. Critical care time 40 minutes, excluding procedures. MD BRENNEN Hollins , 03:09 PM , 03:52 PM
[2017-08-12 17:21] LABS: HEMATOCRIT 20.6 % (39.0-51.0); HEMOGLOBIN 6.8 GM/DL (13.0-17.0)
[2017-08-12 17:37] LABS: BACTERIA, URINE RARE /hpf; BILIRUBIN, URINE NEG (NEG); BLOOD, URINE NEG (NEG); GLUCOSE,URINE TRACE mg/dL (NEG); HYALINE CAST, URINE 11 /lpf (RARE); KETONE, URINE NEG (NEG); NITRITE,URINE NEG (NEG); URINE COLOR LIGHT-YELLOW (YELLW/STRAW); URINE LEUKOCYTE ESTERASE NEG (NEG)
[2017-08-12] MEDS ORDERED: ZIPRASIDONE HCL 80 MG CAP PO ONE (23:45)
[2017-08-13] VITALS (26 sets, daily range): BP systolic 113–134; BP diastolic 70–86; PULSE 73–88; RESP 15–24; TEMP 97.8–98.7; O2SAT 98–100
[2017-08-13] MEDS: INSULIN NovoLIN REGULAR SUPPLEMENTAL SCALE SQ SCH ×6 (02:00→21:42)
[2017-08-13 02:46] LABS: AUTOMATED NEUTROPHIL # 5.8 TH/MM3 (1.8-7.7); BASOPHIL % 0.3 % (0.0-2.0); EOSINOPHIL # 0.1 TH/MM3 (0-0.4); EOSINOPHIL % 1.3 % (0.0-4.0); HEMATOCRIT 29.4 % (39.0-51.0); HEMOGLOBIN 9.8 GM/DL (13.0-17.0); LYMPH % 14.5 % (9.0-44.0); LYMPHOCYTE # 1.1 TH/MM3 (1.0-4.8); MEAN CELL VOLUME 81.1 FL (80.0-100.0); MEAN CORPUSCULAR HEMOGLOBIN 27.1 PG (27.0-34.0); MEAN CORPUSCULAR HGB CONC 33.5 % (32.0-36.0); MEAN PLATELET VOLUME 7.8 FL (7.0-11.0); MONO % 9.1 % (0.0-8.0); MONOCYTE # 0.7 TH/MM3 (0-0.9); NEUT % 74.8 % (16.0-70.0); PLATELET COUNT 178 TH/MM3 (150-450); RED BLOOD COUNT 3.62 MIL/MM3 (4.50-5.90); RED CELL DISTRIBUTION WIDTH 18.1 % (11.6-17.2); WHITE BLOOD COUNT 7.7 TH/MM3 (4.0-11.0)
[2017-08-13 03:23] LABS: ALBUMIN 2.6 GM/DL (3.4-5.0); ALKALINE PHOSPHATASE 69 U/L (45-117); ALT (GPT) 15 U/L (12-78); AST (GOT) 20 U/L (15-37); BICARBONATE 24.3 MEQ/L (21.0-32.0); BLOOD UREA NITROGEN 17 MG/DL (7-18); CALCIUM 8.7 MG/DL (8.5-10.1); CHLORIDE 114 MEQ/L (98-107); CREATININE 0.89 MG/DL (0.60-1.30); GLOMERULAR FILTRATION RATE 93 ML/MIN (>89); GLUCOSE,RANDOM 80 MG/DL (74-106); MAGNESIUM 1.7 MG/DL (1.5-2.5); PHOSPHORUS 1.8 MG/DL (2.5-4.9); SODIUM (NA) 143 MEQ/L (136-145); TOTAL BILIRUBIN ADULT 0.5 MG/DL (0.2-1.0); TOTAL PROTEIN 5.7 GM/DL (6.4-8.2)
[2017-08-13] MEDS: CHLORHEXIDINE GLUCONATE 2 % 1 PACK (2 CLOTHS) TOP SCH (03:24)
[2017-08-13] MEDS ORDERED: POTASSIUM PHOSPHATE MONOBASIC 500 MG TAB PO/TUBE PRN (05:15)
[2017-08-13] MEDS ORDERED: POTASSIUM PHOSPHATE INJ 30 MMOL in SODIUM CHLOR 0.9% 250 ML INJ 250 ML IV PRN (05:15)
[2017-08-13] MEDS ORDERED: MAGNESIUM OXIDE 400 MG TAB PO PRN (05:15)
[2017-08-13] MEDS ORDERED: MAGNESIUM SULFATE INJ 4 GM in SODIUM CHLORIDE 0.9% INJ 92 ML IV PRN (05:15)
[2017-08-13] MEDS ORDERED: POTASSIUM CHLOR 40 MEQ PREMIX 100 ML IV PRN ×2 (05:15)
[2017-08-13] MEDS ORDERED: MAGNESIUM SULFATE INJ 2 GM in SODIUM CHLORIDE 0.9% INJ 96 ML IV PRN (05:15)
[2017-08-13] MEDS ORDERED: POTASSIUM PHOSPHATE MONOBASIC 500 MG TAB PO PRN (05:15)
[2017-08-13] MEDS ORDERED: POTASSIUM CHLORIDE 25 MEQ EFFERVESCENT TAB PO PRN (05:15)
[2017-08-13] MEDS ORDERED: POTASSIUM CHLOR 20 MEQ PREMIX 100 ML IV PRN ×2 (05:15)
[2017-08-13] MEDS: SODIUM PHOSPHATE INJ 30 MMOL in SODIUM CHLOR 0.9% 250 ML INJ 240 ML IV PRN (06:16)
--- NOTE | 2017-08-13 08:39 | HHI.CCPN ---
Subjective Remarks/Hospital Course Patient is a 46-year-old male with a past medical history of esophageal ulcer and stricture, who presented to [facility] ED with complaints of feeling dizzy, lightheaded, generalized weakness and shortness of breath with exertion. The patient has history of GI bleeding in the past. He underwent upper endoscopy on 02/15/2017, which showed grade IV esophagitis. In addition to esophageal ulcer and stricture. On arrival to the ED, he was tachycardic and hypotensive with systolic blood pressure in the 80s. His laboratory data was significant for hemoglobin of 7.0 and he had a lactic acid level of 3.9. The patient is currently receiving 2 units of emergency release of packed red blood cells and 1 liter of normal saline. GI service was notified. When seen in the ER, the patient is awake, alert, on 2 liter nasal cannula and his blood pressure improved to 93/52 with a MAP of 66. The patient denies any chest pain , orthopnea, PND or edema of the lower extremities. In addition, he denies any nausea, vomiting or abdominal pain. 08/13 Patient s/p transfusion 4units PRBC total since yesterday Hgb 9.8 this morning. BP is better 119/77. On Protonix drip for EGD today. Objective Vital Signs Date Time Temp Pulse Resp B/P (MAP) Pulse Ox O2 Delivery O2 Flow Rate FiO2 08/13/17 08:00 97.8 77 15 119/77 (91) 100 08/12/17 15:45 Nasal Cannula 2.00 Intake and Output 08/13/17 08/13/17 08/14/17 08:00 16:00 00:00 Intake Total 1267 ml Output Total 1250 ml Balance 17 ml Result Diagram: 08/13/17 0238 08/13/17 0238 Other Results Laboratory Tests Test 08/12/17 13:20 08/12/17 13:46 08/12/17 16:00 08/12/17 16:30 White Blood Count 12.9 TH/MM3 Red Blood Count 2.91 MIL/MM3 Hemoglobin 7.0 GM/DL Hematocrit 22.7 % Mean Corpuscular Volume 77.9 FL Mean Corpuscular Hemoglobin 23.9 PG Mean Corpuscular Hemoglobin Concent 30.8 % Red Cell Distribution Width 17.4 % Platelet Count 295 TH/MM3 Mean Platelet Volume 7.8 FL Neutrophils (%) (Auto) 86.6 % Lymphocytes (%) (Auto) 6.1 % Monocytes (%) (Auto) 7.1 % Eosinophils (%) (Auto) 0.1 % Basophils (%) (Auto) 0.1 % Neutrophils # (Auto) 11.2 TH/MM3 Lymphocytes # (Auto) 0.8 TH/MM3 Monocytes # (Auto) 0.9 TH/MM3 Eosinophils # (Auto) 0.0 TH/MM3 Basophils # (Auto) 0.0 TH/MM3 CBC Comment DIFF FINAL Differential Comment Prothrombin Time 11.4 SEC Prothromb Time International Ratio 1.1 RATIO Activated Partial Thromboplast Time 21.1 SEC Blood Urea Nitrogen 28 MG/DL Creatinine 1.46 MG/DL Random Glucose 140 MG/DL Total Protein 6.1 GM/DL Albumin 2.8 GM/DL Calcium Level 9.4 MG/DL Alkaline Phosphatase 73 U/L Aspartate Amino Transf (AST/SGOT) 12 U/L Alanine Aminotransferase (ALT/SGPT) 16 U/L Total Bilirubin 0.1 MG/DL Sodium Level 137 MEQ/L Potassium Level 3.6 MEQ/L Chloride Level 107 MEQ/L Carbon Dioxide Level 18.1 MEQ/L Anion Gap 12 MEQ/L Estimat Glomerular Filtration Rate 52 ML/MIN Lipase 156 U/L Lactic Acid Level 3.9 mmol/L Urine Color LIGHT-YELLOW Urine Turbidity CLEAR Urine pH 5.0 Urine Specific [place] 1.008 Urine Protein NEG mg/dL Urine Glucose (UA) TRACE mg/dL Urine Ketones NEG mg/dL Urine Occult Blood NEG Urine Nitrite NEG Urine Bilirubin NEG Urine Urobilinogen LESS THAN 2.0 MG/DL Urine Leukocyte Esterase NEG Urine RBC LESS THAN 1 /hpf Urine WBC 1 /hpf Urine Bacteria RARE /hpf Urine Hyaline Casts 11 /lpf Microscopic Urinalysis Comment CATH-CULTURE IND Nasal Screen MRSA (PCR) MRSA NOT DETECTED Test 08/12/17 16:40 08/13/17 02:38 Hemoglobin 6.8 GM/DL 9.8 GM/DL Hematocrit 20.6 % 29.4 % White Blood Count 7.7 TH/MM3 Red Blood Count 3.62 MIL/MM3 Mean Corpuscular Volume 81.1 FL Mean Corpuscular Hemoglobin 27.1 PG Mean Corpuscular Hemoglobin Concent 33.5 % Red Cell Distribution Width 18.1 % Platelet Count 178 TH/MM3 Mean Platelet Volume 7.8 FL Neutrophils (%) (Auto) 74.8 % Lymphocytes (%) (Auto) 14.5 % Monocytes (%) (Auto) 9.1 % Eosinophils (%) (Auto) 1.3 % Basophils (%) (Auto) 0.3 % Neutrophils # (Auto) 5.8 TH/MM3 Lymphocytes # (Auto) 1.1 TH/MM3 Monocytes # (Auto) 0.7 TH/MM3 Eosinophils # (Auto) 0.1 TH/MM3 Basophils # (Auto) 0.0 TH/MM3 CBC Comment DIFF FINAL Differential Comment Blood Urea Nitrogen 17 MG/DL Creatinine 0.89 MG/DL Random Glucose 80 MG/DL Total Protein 5.7 GM/DL Albumin 2.6 GM/DL Calcium Level 8.7 MG/DL Phosphorus Level 1.8 MG/DL Magnesium Level 1.7 MG/DL Alkaline Phosphatase 69 U/L Aspartate Amino Transf (AST/SGOT) 20 U/L Alanine Aminotransferase (ALT/SGPT) 15 U/L Total Bilirubin 0.5 MG/DL Sodium Level 143 MEQ/L Potassium Level 4.3 MEQ/L Chloride Level 114 MEQ/L Carbon Dioxide Level 24.3 MEQ/L Anion Gap 5 MEQ/L Estimat Glomerular Filtration Rate 93 ML/MIN Imaging Last Impressions Chest X-Ray 08/12/17 0000 Signed Impressions: Service Date/Time: Saturday, August 12, 2017 15:15 - CONCLUSION: The lungs are clear. Lexx Sung MD Objective Remarks GENERAL: Patient is 46 yo lying in bed in NAD SKIN: Warm and dry. HEAD: Normocephalic. EYES: No scleral icterus. No injection or drainage. NECK: Supple, trachea midline. No JVD or lymphadenopathy. CARDIOVASCULAR: Regular rate and rhythm without murmurs, gallops, or rubs. RESPIRATORY: Breath sounds equal bilaterally. No accessory muscle use. GASTROINTESTINAL: Abdomen soft, non-tender, nondistended. MUSCULOSKELETAL: No cyanosis, or edema. Neuro: Awake, alert A/P Assessment and Plan 1. GI bleed 2. Anemia. 3. Lactic acidemia 4. Acute kidney injury... resolved 5. Lactic acidemia. 6. History of esophageal ulcer and stricture. 7. History of schizophrenia. 8. Mild leukocytosis, likely stress related. Plan Neuro: Monitor neuro status Pulm: Continue with oxygen maintain sats >92%. Bronchodilators . CXR showed clear lungs . CV: Monitor HR and BP and maintain MAP> 65 mmHg Given 2L crystalloids, chnage IVF D5NS@75ml/hr, check lactic acid : Monitor renal function, I's and O's and electrolyte replacement per protocol Continue with IV fluids. Will need Phos replacement today GI: On Protonix drip. GI is following EGD showed large esophageal ulcer no signs of active bleeding. Will get CT chest for further eval of esophagus per GI-Dr. Paul. ID: Monitor for signs of infections(ever and WBC). Followup on blood and urine cxs Heme: Monitor CBC s/p transfusion 4u PRBC H/H stable Endo: SSI for glycemic control. GI prophylaxis-on Protonix drip. DVT prophylaxis with SCDs. Chemical anticoagulation prophylaxis contraindicated in the setting of GI l bleed. Will sign off and transfer care to [facility] Level 2 Jose Gonzalez MD August 13, 2017 08:39
[2017-08-13] MEDS: ZIPRASIDONE HCL 80 MG CAP PO SCH (09:16)
[2017-08-13] MEDS: DEXT 5%-NACL 0.9% 1000 ML INJ 1,000 ML IV SCH ×2 (09:17→21:55)
--- NOTE | 2017-08-13 09:56 | EKG ---
Date Performed: 08/12/2017 Time Performed: 13:46:20 PTAGE: 46 years EKG: SINUS TACHYCARDIA WITH SHORT OH INTERVAL ABNORMAL RHYTHM ECG NO PREVIOUS TRACING Suspect early repolarization. DOCTOR: Matthew Cooper Interpretating Date/Time 08/13/2017 09:55:59
[2017-08-13] MEDS: PANTOPRAZOLE INJ 80 MG in SODIUM CHLORIDE 0.9% INJ 100 ML IV SCH ×2 (11:30→11:50)
[2017-08-13] MEDS ORDERED: PROPOFOL 200 MG/20 ML AMP IV ONE (12:00)
[2017-08-13] MEDS ORDERED: LIDOCAINE HCL 1% PF 5 ML SYRINGE OTHER ONE (12:00)
[2017-08-13 14:03] LABS: HEMATOCRIT 30.8 % (39.0-51.0); HEMOGLOBIN 10.2 GM/DL (13.0-17.0)
[2017-08-13] MEDS ORDERED: DO NOT ADM ANY ANTICOAGULANT DRUGS PRN (15:07)
[2017-08-13] MEDS ORDERED: DIATRIZOATE MEGLUM/DIATRIZOATE SOD 9 ML CUP PO ONE (16:30)
[2017-08-13] MEDS ORDERED: IOHEXOL 350 MG/ML 10 ML VIAL (for RAD DIAG) IVCONTRAST ONE (19:50)
--- NOTE | 2017-08-13 19:53 | RADRPT ---
EXAM DATE/TIME: 08/13/2017 19:28 [facility] COMPARISON: No previous studies available for comparison. INDICATIONS : Dysphagia and shortness of breath. Evaluate for esophageal mass. IV CONTRAST: 95 cc Omnipaque 350 (iohexol) IV ; Cumulative dose for multiple exams. RADIATION DOSE: 11.94 CTDIvol (mGy) ; Combined studies - Thorax/Abdomen/Pelvis MEDICAL HISTORY : Ulcers. GI bleed. SURGICAL HISTORY : None. ENCOUNTER: Initial ACUITY: 1 day PAIN SCALE: 0/10 LOCATION: chest TECHNIQUE: Volumetric scanning of the chest was performed. Using automated exposure control and adjustment of t he mA and/or kV according to patient size, radiation dose was kept as low as reasonably achievable to obtain optimal diagnostic quality images. DICOM format image data is available electronically for review and comparison. Follow-up recommendations for detected pulmonary nodules are based at a minimum on nodule size and pa tient risk factors according to Fleischner Society Guidelines. FINDINGS: LUNGS: There is minimal bibasilar consolidation. No concerning pulmonary nodule is visualized. PLEURA: There are small pleural effusions bilaterally. MEDIASTINUM: The heart and great vessels demonstrate no acute abnormality. There is no mediastinal or hilar lymph adenopathy. AXILLAE: Within normal limits. No lymphadenopathy. SKELETAL: Within normal limits for patient age. MISCELLANEOUS: Old right-sided rib fractures. Small moderate hiatal hernia. CONCLUSION: 1. Small pleural effusions and bibasilar consolidation 2. Old right-sided rib fractures. 3. Small moderate-sized hiatal hernia. Kristopher Avina MD on August 13, 2017 at 19:50 Board Certified Radiologist. This report was verified electronically.
--- NOTE | 2017-08-13 20:01 | RADRPT ---
EXAM DATE/TIME: 08/13/2017 19:28 [facility] COMPARISON: No previous studies available for comparison. INDICATIONS : Abdomen pain. Patient had peptic ulcers seen on upper endoscope. IV CONTRAST: 95 cc Omnipaque 350 (iohexol) IV ; Cumulative dose for multiple exams. ORAL CONTRAST: Prescribed oral contrast ingested. RADIATION DOSE: 11.94 CTDIvol (mGy) ; Combined studies MEDICAL HISTORY : Ulcers. GI Bleed. SURGICAL HISTORY : None. ENCOUNTER: Initial ACUITY: 1 day PAIN SCALE: 4/10 LOCATION: Bilateral upper quadrant TECHNIQUE: Volumetric scanning of the abdomen was performed. Using automated exposure control and adjustment of the mA and/or kV according to patient size, radiation dose was kept as low as reasonably achievable to obtain optimal diagnostic quality images. DICOM format image data is available electronically for review and comparison. FINDINGS: LOWER LUNGS: Small pleural effusions and bibasilar densities LIVER: Homogeneous density without lesion. There is no dilation of the biliary tree. No calcified gallstones . Hepatic low-density posterior right lobe. SPLEEN: Normal size without lesion. PANCREAS: Within normal limits. KIDNEYS: Normal in size and shape. There is no mass, stone, or hydronephrosis on the left. Right-sided mild hy dronephrosis. ADRENAL GLANDS: Within normal limits. AORTA/RETROPERITONEAL: There is no aneurysm or lymphadenopathy. BOWEL/MESENTERY: Moderate-sized hiatal hernia. ABDOMINAL WALL: Within normal limits. MUSCULOSKELETAL: Within normal limits for patient age. POST CONTRAST: No abnormal areas of enhancement are seen. CONCLUSION: 1. Moderate-sized hiatal hernia. 2. Mild right-sided hydronephrosis. 3. Hepatic low-density, likely benign. 4. Small pleural effusions and bibasilar densities Kristopher Avina MD on August 13, 2017 at 19:57 Board Certified Radiologist. This report was verified electronically.
[2017-08-13] MEDS ORDERED: PANTOPRAZOLE INJ 80 MG in SODIUM CHLORIDE 0.9% INJ 100 ML IV SCH (22:00)
--- NOTE | 2017-08-13 22:32 | PD.PROCEDR ---
GI Procedure PROCEDURE PERFORMED Upper endoscopy with biopsy INDICATION FOR PROCEDURE Hematemesis PROCEDURE: The procedure, risks and benefits were discussed with Mr. Lance and informed consent was obtained. Anesthesia sedated him with Diprivan. He was placed in the left lateral decubitus position. EGD: The Pentax videoscope was introduced through the oropharynx and advanced to the second portion of the duodenum under direct visualization. Retroflexion was performed in the stomach. Biopsy from the distal esophagus ESTIMATED BLOOD LOSS: None SPECIMENS REMOVED: Distal COMPLICATIONS: None IMPRESSION: Large esophageal ulcer very deep in the distal esophagus biopsy was done, potentially could be malignant ulcer, patient also has severe esophagitis grade D all the way to the proximal esophagus he also has large hiatal hernia Stomach normal Duodenum normal PLAN: No NSAIDs Follow-up biopsy CT of the chest and abdomen Photonix 40 mg twice daily Repeat EGD in few weeks Ashwin Paul MD August 13, 2017 22:32
[2017-08-14] VITALS (9 sets, daily range): BP systolic 111–129; BP diastolic 68–83; PULSE 74–107; RESP 15–19; TEMP 98–99.3; O2SAT 98–100
[2017-08-14] MEDS: INSULIN NovoLIN REGULAR SUPPLEMENTAL SCALE SQ SCH ×3 (01:54→10:00)
[2017-08-14] MEDS: CHLORHEXIDINE GLUCONATE 2 % 1 PACK (2 CLOTHS) TOP SCH (04:00)
[2017-08-14 04:12] LABS: AUTOMATED NEUTROPHIL # 4.6 TH/MM3 (1.8-7.7); BASOPHIL % 0.3 % (0.0-2.0); EOSINOPHIL # 0.2 TH/MM3 (0-0.4); HEMATOCRIT 29.6 % (39.0-51.0); LYMPHOCYTE # 1.2 TH/MM3 (1.0-4.8); MEAN CORPUSCULAR HEMOGLOBIN 27.2 PG (27.0-34.0); MEAN CORPUSCULAR HGB CONC 33.6 % (32.0-36.0); MEAN PLATELET VOLUME 8.1 FL (7.0-11.0); MONO % 9.3 % (0.0-8.0); MONOCYTE # 0.6 TH/MM3 (0-0.9); NEUT % 69.4 % (16.0-70.0); PLATELET COUNT 210 TH/MM3 (150-450); RED BLOOD COUNT 3.66 MIL/MM3 (4.50-5.90); RED CELL DISTRIBUTION WIDTH 18.1 % (11.6-17.2); WHITE BLOOD COUNT 6.6 TH/MM3 (4.0-11.0)
[2017-08-14 05:05] LABS: BICARBONATE 26.5 MEQ/L (21.0-32.0); CALCIUM 8.7 MG/DL (8.5-10.1); CREATININE 0.82 MG/DL (0.60-1.30); MAGNESIUM 1.9 MG/DL (1.5-2.5); PHOSPHORUS 2.1 MG/DL (2.5-4.9)
[2017-08-14] MEDS: SODIUM PHOSPHATE INJ 30 MMOL in SODIUM CHLOR 0.9% 250 ML INJ 240 ML IV PRN (05:46)
[2017-08-14] MEDS: ZIPRASIDONE HCL 80 MG CAP PO SCH (07:41)
--- NOTE | 2017-08-14 11:31 | HHI.GIFU ---
Subjective Remarks Pt resting in bed. asking to go home. NO further bleeding per RN. Denies abd pain. (Mimi Richmond) Objective Vitals I&O Vital Signs Date Time Temp Pulse Resp B/P (MAP) Pulse Ox O2 Delivery O2 Flow Rate FiO2 08/14/17 10:00 84 08/14/17 08:00 99.3 74 17 127/83 (98) 100 08/14/17 08:00 74 08/14/17 06:00 77 08/14/17 04:00 98.5 81 17 125/77 (93) 98 08/14/17 04:00 81 08/14/17 02:00 74 08/14/17 00:00 98.3 81 19 129/75 (93) 100 08/14/17 00:00 81 08/13/17 22:00 82 08/13/17 20:00 98.4 73 24 134/86 (102) 98 08/13/17 20:00 73 08/13/17 18:00 76 08/13/17 16:00 81 08/13/17 16:00 97.8 81 17 113/70 (84) 100 08/13/17 15:40 70 17 114/70 (85) 100 Room Air 08/13/17 15:12 98.0 85 17 115/72 (86) 98 Room Air 08/13/17 14:20 98.2 92 17 136/74 (94) 98 08/13/17 14:00 88 08/13/17 12:00 77 08/13/17 12:00 98.7 77 15 118/76 (90) 100 I/O 08/13/17 08/13/17 08/13/17 08/14/17 08/14/17 08/14/17 07:00 15:00 23:00 07:00 15:00 23:00 Intake Total 2367 ml 394 ml 2584 ml 1856.7 ml Output Total 1250 ml 2500 ml 1850 ml Balance 1117 ml 394 ml 84 ml 6.7 ml Intake Oral 1396 ml 1200 ml IV Total 1967 ml 394 ml 1088 ml 656.7 ml Packed Cells 400 ml Other 100 ml Output Urine Total 1250 ml 2500 ml 1850 ml # Voids 8 # Bowel Movements 0 Laboratory Laboratory Tests Test 08/13/17 13:44 08/13/17 13:55 08/14/17 03:17 Hemoglobin 10.2 10.0 Hematocrit 30.8 29.6 Phosphorus Level 2.6 2.1 White Blood Count 6.6 Red Blood Count 3.66 Mean Corpuscular Volume 81.0 Mean Corpuscular Hemoglobin 27.2 Mean Corpuscular Hemoglobin Concent 33.6 Red Cell Distribution Width 18.1 Platelet Count 210 Mean Platelet Volume 8.1 Neutrophils (%) (Auto) 69.4 Lymphocytes (%) (Auto) 18.0 Monocytes (%) (Auto) 9.3 Eosinophils (%) (Auto) 3.0 Basophils (%) (Auto) 0.3 Neutrophils # (Auto) 4.6 Lymphocytes # (Auto) 1.2 Monocytes # (Auto) 0.6 Eosinophils # (Auto) 0.2 Basophils # (Auto) 0.0 CBC Comment DIFF FINAL Differential Comment Blood Urea Nitrogen 6 Creatinine 0.82 Random Glucose 102 Calcium Level 8.7 Magnesium Level 1.9 Sodium Level 142 Potassium Level 4.0 Chloride Level 109 Carbon Dioxide Level 26.5 Anion Gap 7 Estimat Glomerular Filtration Rate 102 Date/Time Source Procedure Growth Status 08/13/17 19:09 Blood Peripheral Aerobic Blood Culture - Preliminary NO GROWTH IN 1 DAY Resulted 08/13/17 19:09 Blood Peripheral Anaerobic Blood Culture - Preliminary NO GROWTH IN 1 DAY Resulted 08/12/17 16:00 Urine Catheterized Urine Urine Culture - Final NO GROWTH IN 48 HOURS. Complete Imaging Last Impressions Chest CT 08/13/17 0000 Signed Impressions: Service Date/Time: Sunday, August 13, 2017 19:28 - CONCLUSION: 1. Small pleural effusions and bibasilar consolidation 2. Old right-sided rib fractures. 3. Small moderate-sized hiatal hernia. Kristopher Avina MD Abdomen CT 08/13/17 0000 Signed Impressions: Service Date/Time: Sunday, August 13, 2017 19:28 - CONCLUSION: 1. Moderate-sized hiatal hernia. 2. Mild right-sided hydronephrosis. 3. Hepatic low-density, likely benign. 4. Small pleural effusions and bibasilar densities Kristopher Avina MD Chest X-Ray 08/12/17 0000 Signed Impressions: Service Date/Time: Saturday, August 12, 2017 15:15 - CONCLUSION: The lungs are clear. Lexx Sung MD Physical Exam HEENT: normocephalic; atraumatic; no jaundice. left eye weeping CHEST: CTA CARDIAC: RRR ABDOMEN: Soft, nondistended, nontender; no hepatosplenomegaly; bowel sounds are present in all four quadrants. EXTREMITIES: No clubbing, cyanosis, or edema. SKIN: Normal; no rash; no jaundice. T[employer] BALL C[employer] CEMENTER: No focal deficits; alert and oriented times three. (Mimi Richmond) Assessment and Plan Assessment: (1) GI bleed ICD Codes: K92.2 - Gastrointestinal hemorrhage, unspecified Status: Acute Plan Symptomatic anemia, acute onset of dizziness, lightheadedness with near syncopal episode 24 hours ago. Patient has a history of GI bleed and esophageal ulcers as well as an esophageal stricture according to the old records. Notes EGD done at [facility] with Dr. Baker, unknown timing. Current hemoglobin 7 patient is currently being transfused and IV fluids infusing. Blood pressure with some mild hypotension systolic 86, head of bed flat. Probably secondary to his GI bleed. No hematemesis or melena stools. Old records show tight narrowing stenosis of the mid to distal esophagus her barium swallow x-ray on February 15, 2016. Patient ate 2 tacos approximately 11 PM, but he is now n.p.o. Currently patient has some sinus tachycardia heart rate around 107, hypotension with systolic blood pressure around 86 patient is being transfused and IV fluids bolus. Nausea with dyspepsia notes symptoms worsened for the past 2 days. No vomiting History of hemorrhoids patient also states with some bleeding in the past, no current rectal bleeding now. Patient does state he has had them cauterized in the past. Patient has significant history of schizophrenia 08/14/17 s/p EGD found large esophageal ulcer possibly malignant, severe esophagitis, hiatal hernia. CT chest noted. CT abd noted- hepatic low density likely benign lesion. no further bleeding, HH is stable. bx pending Plan await bx soft diet d/c protonix gtt BID protonix 40mg EGD 4 weeks Patient was seen per myself Dr. Paul, note was written on his behalf (Mimi Richmond) Plan Patient was seen and examined, agree with above note, follow-up with Dr. MONTENEGRO his geotechnical intern on the biopsy and further management (Ashwin Paul MD) Problem Qualifiers (1) GI bleed: Qualified Codes: K92.2 - Gastrointestinal hemorrhage, unspecified Mimi Richmond August 14, 2017 11:30 Ashwin Paul MD August 15, 2017 14:21
[2017-08-14] MEDS: DEXT 5%-NACL 0.9% 1000 ML INJ 1,000 ML IV SCH (12:34)
--- NOTE | 2017-08-14 13:10 | HHI.PR ---
Subjective Remarks Follow-up upper GI bleed/symptomatic anemia August 14, 2017-patient seen and examined, H&H stable denies any GI bleed. Denies any chest pain or shortness of breath. Vital stable. Objective Vitals Vital Signs Date Time Temp Pulse Resp B/P (MAP) Pulse Ox O2 Delivery O2 Flow Rate FiO2 08/14/17 12:00 77 08/14/17 12:00 99.2 77 15 111/68 (82) 99 08/14/17 10:00 84 08/14/17 08:00 99.3 74 17 127/83 (98) 100 08/14/17 08:00 74 08/14/17 06:00 77 08/14/17 04:00 98.5 81 17 125/77 (93) 98 08/14/17 04:00 81 08/14/17 02:00 74 08/14/17 00:00 98.3 81 19 129/75 (93) 100 08/14/17 00:00 81 08/13/17 22:00 82 08/13/17 20:00 98.4 73 24 134/86 (102) 98 08/13/17 20:00 73 08/13/17 18:00 76 08/13/17 16:00 81 08/13/17 16:00 97.8 81 17 113/70 (84) 100 08/13/17 15:40 70 17 114/70 (85) 100 Room Air 08/13/17 15:12 98.0 85 17 115/72 (86) 98 Room Air 08/13/17 14:20 98.2 92 17 136/74 (94) 98 08/13/17 14:00 88 I/O 08/13/17 08/13/17 08/13/17 08/14/17 08/14/17 08/14/17 07:00 15:00 23:00 07:00 15:00 23:00 Intake Total 2367 ml 394 ml 2584 ml 1856.7 ml 317 ml Output Total 1250 ml 2500 ml 1850 ml Balance 1117 ml 394 ml 84 ml 6.7 ml 317 ml Intake Oral 1396 ml 1200 ml IV Total 1967 ml 394 ml 1088 ml 656.7 ml 317 ml Packed Cells 400 ml Other 100 ml Output Urine Total 1250 ml 2500 ml 1850 ml # Voids 8 # Bowel Movements 0 Result Diagram: 08/14/17 0317 08/14/17 0317 Imaging Last Impressions Chest CT 08/13/17 0000 Signed Impressions: Service Date/Time: Sunday, August 13, 2017 19:28 - CONCLUSION: 1. Small pleural effusions and bibasilar consolidation 2. Old right-sided rib fractures. 3. Small moderate-sized hiatal hernia. Kristopher Avina MD Abdomen CT 08/13/17 0000 Signed Impressions: Service Date/Time: Sunday, August 13, 2017 19:28 - CONCLUSION: 1. Moderate-sized hiatal hernia. 2. Mild right-sided hydronephrosis. 3. Hepatic low-density, likely benign. 4. Small pleural effusions and bibasilar densities Kristopher Avina MD Chest X-Ray 08/12/17 0000 Signed Impressions: Service Date/Time: Saturday, August 12, 2017 15:15 - CONCLUSION: The lungs are clear. Lexx Sung MD Objective Remarks GENERAL: NAD SKIN: Warm and dry. HEAD: Normocephalic. EYES: No scleral icterus in right eye. Left glass eye NECK: Supple, trachea midline. No JVD or lymphadenopathy. CARDIOVASCULAR: Regular rate and rhythm without murmurs, gallops, or rubs. RESPIRATORY: Breath sounds equal bilaterally. No accessory muscle use. GASTROINTESTINAL: Abdomen soft, non-tender, nondistended. MUSCULOSKELETAL: No cyanosis, or edema. BACK: Nontender without obvious deformity. No CVA tenderness. A/P Problem List: (1) GI bleed ICD Code: K92.2 - Gastrointestinal hemorrhage, unspecified Status: Acute (2) Symptomatic anemia ICD Code: D64.9 - Anemia, unspecified Assessment and Plan 46-year-old man with GI bleed Symptomatic anemia anemia. Transfused a total of 4 units since admission H&H currently stable Status post EGD with finding of Large esophageal ulcer/esophagitis/hiatal hernia Status post PPI drip, currently on p.o. Protonix. Advised to avoid NSAID CT chest noted and reviewed by me Lactic acidemia Acute kidney injury resolved post transfusion and IV fluid hydration Mild right sided hydronephrosis per abdominal CT Check renal ultrasound History of schizophrenia. Continue Geodon Mild leukocytosis, likely stress related. Resolved GI prophylaxis-on Protonix DVT prophylaxis with SCDs. Chemical anticoagulation prophylaxis contraindicated in the setting of GI l bleed. Problem Qualifiers (1) GI bleed: Qualified Codes: K92.2 - Gastrointestinal hemorrhage, unspecified Kristopher Oconnor MD August 14, 2017 13:10
[2017-08-14] MEDS ORDERED: PANT40TA3 PO (13:16)
--- NOTE | 2017-08-14 14:18 | RADRPT ---
EXAM DATE/TIME: 08/14/2017 13:46 [facility] COMPARISON: CT ABDOMEN W CONTRAST, August 13, 2017, 19:28. INDICATIONS : Hydronephrosis. MEDICAL HISTORY : Esophogeal ulcer and stricture. Left eye prosthesis. Schizophrenia. SURGICAL HISTORY : Upper endoscopy. Left eye removed. Right elbow surgery. ENCOUNTER: Subsequent ACUITY: 1 day PAIN SCORE: 0/10 LOCATION: Bilateral flank MEASUREMENTS: RIGHT KIDNEY: 13.2 x 6.1 x 5.7 cm LEFT KIDNEY: 13.6 x 5.2 x 5.2 cm FINDINGS: RIGHT KIDNEY: Renal cortex is normal in thickness and echotexture. There is moderate hydronephrosis and a distended extrarenal pelvis. The recent abdomen CT demonstrated the level of caliber change to be abruptly at the level of the ureteropelvic junction. No mass or stone is visualized. Hydronephrosis is not change d following voiding. LEFT KIDNEY: Renal cortex is normal in thickness and echotexture. No hydronephrosis, stone, or mass. BLADDER: Within normal limits given the degree of distension. Prevoid bladder volume is 311 mL and postvoid v olume is 12 mL. CONCLUSION: 1. Moderate severity right hydronephrosis. Caliber change is abruptly at the ureteropelvic junction, therefore, this may be secondary to a congenital or chronic UPJ stenosis. Nuclear medicine renogram c ould evaluate the degree of excretion and drainage. 2. Remainder of the examination is within normal limits. Kunal Miller MD on August 14, 2017 at 14:12 Board Certified Radiologist. This report was verified electronically.
--- NOTE | 2017-08-14 14:44 | HHI.DS ---
Discharge Summary Admission Date August 12, 2017 at 14:04 Discharge Date: August 14, 2017 Admitting Diagnosis GI bleed, hemorrhagic shock (1) GI bleed ICD Code: K92.2 - Gastrointestinal hemorrhage, unspecified Status: Acute (2) Symptomatic anemia ICD Code: D64.9 - Anemia, unspecified Procedures None CBC/BMP: 08/14/17 0317 08/14/17316 Significant Findings Laboratory Tests Test 08/12/17 13:20 08/12/17 13:46 08/12/17 16:00 08/12/17 16:30 White Blood Count 12.9 TH/MM3 (4.0-11.0) Red Blood Count 2.91 MIL/MM3 (4.50-5.90) Hemoglobin 7.0 GM/DL (13.0-17.0) Hematocrit 22.7 % (39.0-51.0) Mean Corpuscular Volume 77.9 FL (80.0-100.0) Mean Corpuscular Hemoglobin 23.9 PG (27.0-34.0) Mean Corpuscular Hemoglobin Concent 30.8 % (32.0-36.0) Red Cell Distribution Width 17.4 % (11.6-17.2) Neutrophils (%) (Auto) 86.6 % (16.0-70.0) Lymphocytes (%) (Auto) 6.1 % (9.0-44.0) Neutrophils # (Auto) 11.2 TH/MM3 (1.8-7.7) Lymphocytes # (Auto) 0.8 TH/MM3 (1.0-4.8) Activated Partial Thromboplast Time 21.1 SEC (24.3-30.1) Blood Urea Nitrogen 28 MG/DL (7-18) Creatinine 1.46 MG/DL (0.60-1.30) Random Glucose 140 MG/DL (74-106) Total Protein 6.1 GM/DL (6.4-8.2) Albumin 2.8 GM/DL (3.4-5.0) Aspartate Amino Transf (AST/SGOT) 12 U/L (15-37) Total Bilirubin 0.1 MG/DL (0.2-1.0) Carbon Dioxide Level 18.1 MEQ/L (21.0-32.0) Estimat Glomerular Filtration Rate 52 ML/MIN (>89) Lactic Acid Level 3.9 mmol/L (0.4-2.0) Urine Bacteria RARE /hpf (NONE) Test 08/12/17 16:40 08/13/17 02:38 08/13/17 08:36 08/13/17 11:09 Hemoglobin 6.8 GM/DL (13.0-17.0) 9.8 GM/DL (13.0-17.0) Hematocrit 20.6 % (39.0-51.0) 29.4 % (39.0-51.0) Red Blood Count 3.62 MIL/MM3 (4.50-5.90) Red Cell Distribution Width 18.1 % (11.6-17.2) Neutrophils (%) (Auto) 74.8 % (16.0-70.0) Monocytes (%) (Auto) 9.1 % (0.0-8.0) Total Protein 5.7 GM/DL (6.4-8.2) Albumin 2.6 GM/DL (3.4-5.0) Phosphorus Level 1.8 MG/DL (2.5-4.9) 2.4 MG/DL (2.5-4.9) Chloride Level 114 MEQ/L (98-107) Test 08/13/17 13:44 08/13/17 13:55 08/14/17 03:17 Hemoglobin 10.2 GM/DL (13.0-17.0) 10.0 GM/DL (13.0-17.0) Hematocrit 30.8 % (39.0-51.0) 29.6 % (39.0-51.0) Red Blood Count 3.66 MIL/MM3 (4.50-5.90) Red Cell Distribution Width 18.1 % (11.6-17.2) Monocytes (%) (Auto) 9.3 % (0.0-8.0) Blood Urea Nitrogen 6 MG/DL (7-18) Phosphorus Level 2.1 MG/DL (2.5-4.9) Chloride Level 109 MEQ/L (98-107) Imaging Last Impressions Renal Ultrasound 08/14/17 Signed Impressions: Service Date/Time: August 13:46 - CONCLUSION: 1. Moderate severity right hydronephrosis. Caliber change is abruptly at the ureteropelvic junction, therefore, this may be secondary to a congenital or chronic UPJ stenosis. Nuclear medicine renogram could evaluate the degree of excretion and drainage. 2. Remainder of the examination is within normal limits. Kunal Miller MD Chest CT 08/13/17 Signed Impressions: Service Date/Time: Sunday, August 13, 2017 19:28 - CONCLUSION: 1. Small pleural effusions and bibasilar consolidation 2. Old right-sided rib fractures. 3. Small moderate-sized hiatal hernia. Kristopher Avina MD Abdomen CT 08/13/17 Signed Impressions: Service Date/Time: Sunday, August 13, 2017 19:28 - CONCLUSION: 1. Moderate-sized hiatal hernia. 2. Mild right-sided hydronephrosis. 3. Hepatic low-density, likely benign. 4. Small pleural effusions and bibasilar densities Kristopher Avina MD Chest X-Ray 08/12/17 Signed Impressions: Service Date/Time: Saturday, August 12, 2017 15:15 - CONCLUSION: The lungs are clear. Lexx Sung MD PE at Discharge GENERAL: NAD SKIN: Warm and dry. HEAD: Normocephalic. EYES: No scleral icterus in right eye. Left glass eye NECK: Supple, trachea midline. No JVD or lymphadenopathy. CARDIOVASCULAR: Regular rate and rhythm without murmurs, gallops, or rubs. RESPIRATORY: Breath sounds equal bilaterally. No accessory muscle use. GASTROINTESTINAL: Abdomen soft, non-tender, nondistended. MUSCULOSKELETAL: No cyanosis, or edema. BACK: Nontender without obvious deformity. No CVA tenderness. Hospital Course While in hospital, patient was treated for: GI bleed Symptomatic anemia anemia. Transfused a total of 4 units since admission H&H currently stable Status post EGD with finding of Large esophageal ulcer/esophagitis/hiatal hernia Status post PPI drip, currently on p.o. Protonix. Advised to avoid NSAID CT chest noted and reviewed by me Lactic acidemia Acute kidney injury resolved post transfusion and IV fluid hydration Mild right sided hydronephrosis per abdominal CT Renal ultrasound was ordered and report noted, patient will need outpatient renogram to evaluate degree of excretion and drainage History of schizophrenia. Treated with Geodon Mild leukocytosis, likely stress related. Resolved GI prophylaxis-on Protonix DVT prophylaxis with SCDs. Chemical anticoagulation prophylaxis contraindicated in the setting of GI l bleed. Pt Condition on Discharge: Good Discharge Disposition: Discharge Home Discharge Time: <= 30 minutes Discharge Instructions DIET: Follow Instructions for: Heart Healthy Diet Activities you can perform: Regular-No Restrictions Follow up Referrals: Gastroenterology PCP Follow-up - 1 Week New Medications: Pantoprazole (Pantoprazole) 40 Mg Tab 40 MG PO Q12HR for Prevent Stress Ulcers, #60 TAB 3 Refills Continued Medications: Ziprasidone (Geodon) 80 Mg Cap 160 MG PO DAILY, #60 CAP 0 Refills Discontinued Medications: Pantoprazole (Protonix) 40 Mg Tab 40 MG PO BID for Reflux, #60 TAB 0 Refills Kristopher Oconnor MD August 14, 2017 14:44
[2017-08-14] MEDS ORDERED: PANTOPRAZOLE SOD 40 MG DELAYED RELEASE TAB PO SCH (21:00)
== END 2017-08-14 16:40 | disposition home or self-care (01) | DRG 380 ==
LOC: NEPE 12:52 → NEDA 14:04 → HIMW 15:55
PROVIDERS: ADMIT Hospitalist; ATTEND Hospitalist
PROC: 30233N1 Transfusion of Nonautologous Red Blood Cells into Peripheral Vein, Percutaneous Approach (ICD-10-PCS; 2017-08-12)
PROC: 0DB38ZX Excision of Lower Esophagus, Via Natural or Artificial Opening Endoscopic, Diagnostic (ICD-10-PCS; principal; 2017-08-13 14:49)
DX: K22.11 Ulcer of esophagus with bleeding (principal); R57.8 Other shock; N17.9 Acute kidney failure, unspecified; E87.2 Acidosis; N13.30 Unspecified hydronephrosis; F20.9 Schizophrenia, unspecified; K92.0 Hematemesis; R00.0 Tachycardia, unspecified; D64.9 Anemia, unspecified; D72.829 Elevated white blood cell count, unspecified; F41.9 Anxiety disorder, unspecified; K64.9 Unspecified hemorrhoids; K44.9 Diaphragmatic hernia without obstruction or gangrene; R55 Syncope and collapse
CPT/HCPCS: 36430; 71045; 71260; 74160; 76775; 80048; 80053; 81001; 82948; 83605; 83690; 83735; 84100; 85014; 85018; 85025; 85610; 85730; 86403; 86850; 86900; 86901; 86920; 87040; 87077; 87086; 87186; 87205; 87641; 88305; 88312; 93005; C9113; J7030; J7042; J7050; P9016; Q9963; Q9967

== ENCOUNTER 2018-05-28 08:22 | Inpatient (IN) ==
--- NOTE | 2018-05-28 08:44 | ED ---
HPI General Chief Complaint: Psychiatric Symptoms Stated Complaint: Psych Eval Time Seen by Provider: 05/28/18 08:36 Source: EMS and police Mode of arrival: EMS Limitations: other (Uncooperative) History of Present Illness HPI Narrative: 47-year-old male with a history of schizophrenia is for evaluation of agitation at the assisted. Patient was placed on a [place] act. Patient arrives talking to himself and rolling around in bed, unable to provide any history. Patient was recently admitted for an upper GI bleed. Related Data Home Medications Medication Instructions Recorded Confirmed ziprasidone HCl [Geodon] 160 mg PO QPM 05/04/18 05/29/18 olanzapine [Zyprexa] 80 mg PO DAILY 05/29/18 05/29/18 tramadol 05/29/18 Previous Rx's Medication Instructions Recorded pantoprazole [Protonix] 40 mg PO Q12H #60 tab 05/10/18 sucralfate 1 gm PO ACHS #120 tab 05/10/18 amoxicillin-pot clavulanate 1 tab PO BID #6 tab 05/22/18 [Augmentin] Allergies Allergy/AdvReac Type Severity Reaction Status Date / Time haloperidol Allergy Severe Blurry Verified 05/07/18 08:49 Vision benztropine Allergy Unknown denies Verified 05/07/18 08:52 allergy Review of Systems ROS Unobtainable ROS Unobtainable: unobtainable due to mental status [facility] Medical History Medical History Anxiety (Acute) Esophageal varices (Acute) Schizophrenia (Acute) Surgical History Surgical History History of eye surgery (Acute) Social History Social History Substance History: Unable to Obtain Second Hand Smoke Exposure: No Smoking Status: Never smoker How Often Do You Have a Drink Containing Alcohol: Never Recent Travel in [facility] within the Last 8 Weeks: No Recent Out of Country Travel within the Last 8 Weeks: No Exam Narrative Exam Narrative: GENERAL: Awake, alert, agitated SKIN: Focused skin assessment warm/dry. HEAD: Atraumatic. Normocephalic. EYES: Pupils equal and round. No scleral icterus. No injection or drainage. ENT: No nasal bleeding or discharge. Mucous membranes pink and moist. NECK: Trachea midline. No JVD. CARDIOVASCULAR: Regular rate and rhythm. No murmur appreciated. RESPIRATORY: No accessory muscle use. Clear to auscultation. Breath sounds equal bilaterally. GASTROINTESTINAL: Abdomen soft, non-tender, nondistended. Hepatic and splenic margins not palpable. MUSCULOSKELETAL: No obvious deformities. No clubbing. No cyanosis. No edema. NEUROLOGICAL: Awake and alert. No obvious cranial nerve deficits. Motor grossly within normal limits. Normal speech. PSYCHIATRIC: Patient appears to be reacting to internal stimuli Course Initial Documented Vital Signs Temperature 98.9 F 05/28/18 08:33 Pulse Rate 122 H 05/28/18 08:33 Respiratory Rate 22 05/28/18 08:33 Blood Pressure 136/70 05/28/18 08:33 Pulse Oximetry 99 05/28/18 08:33 Last Documented Vital Signs Temperature 97.8 F 05/29/18 12:48 Pulse Rate 88 05/29/18 12:48 Respiratory Rate 20 05/29/18 12:48 Blood Pressure 110/67 05/29/18 12:48 Pulse Oximetry 98 05/29/18 12:48 Sign Out Sign Out Data: Patient Sign Out occurred on 05/28/18 at 16:28. Patient's care was discussed, and care was transferred from Jodi Qureshi MD to Quintin Horne. Sign Out Comment: 47 year old male with schizophrenia presents for evaluation from a assisted with agitation. He is on a [place] act. Patient given Ativan and Geodon with improvement. He is positive for amphetamines on urine toxicology. Signed out awaiting psychiatric evaluation. Last updated by Jodi Qureshi MD at 05/28/18 15:17 Medical Decision Making MDM Narrative Medical decision making narrative: 47-year-old male with a history of schizophrenia and recent GI bleed presents for evaluation of agitation from the assisted. Patient is on a [place] act. Patient appears to be either acutely psychotic or under the influence of substances. Patient given Ativan and Geodon IM with improvement. Laboratory work shows hemoglobin similar to recent values. Urine toxicology is positive for amphetamines. Patient sleeping and unable to be evaluated by psychiatry. Signed out awaiting psychiatric evaluation when awake Medical Screen Exam Complete: Yes Emergency Medical Condition: Yes Medical Records Medical records reviewed: Yes I reviewed the patient's medical records. Upon review of the chart the patient has recurrent upper GI bleed episodes. Previously the patient has had an upper endoscopy which shows Brothers's esophagus who presented to [facility] ED with coffee-ground emesis previously discharged on May 22. Patient apparently has history of SVT, anemia secondary to GI blood loss, the patient received 4 units of PRBC completed the last time that he was admitted. According to blood work patient was discharged with a hemoglobin of 9.4 now the patient returns with an hemoglobin of 7.9 and acting psychotic, the patient does have a history of incarcerated hernia which was repaired on may 17. Lab Data Result diagrams: 05/29/18 09:39 05/29/18 02:31 Lab Results 05/28/18 05/28/18 05/28/18 Range/Units 09:17 09:17 10:25 WBC 8.5 (4.0-11.0) th/mm3 RBC 2.83 L (4.50-5.90) mil/mm3 Hgb 7.9 L (13.0-17.0) gm/dL Hct 23.4 L (39.0-51.0) % MCV 82.6 (80.0-100.0) fL MCH 27.9 (27.0-34.0) pg MCHC 33.8 (32.0-36.0) % RDW 17.0 (11.6-17.2) % Plt Count 329 (150-450) th/mm3 MPV 7.1 (7.0-11.0) fL Neut % (Auto) 81.8 H (16.0-70.0) % Lymph % (Auto) 7.8 L (9.0-44.0) % [place] % (Auto) 8.2 H (0.0-8.0) % Eos % (Auto) 1.6 (0.0-4.0) % Baso % (Auto) 0.6 (0.0-2.0) % Neut # (Auto) 7.0 (1.8-7.7) th/mm3 Lymph # (Auto) 0.7 L (1.0-4.8) th/mm3 [place] # (Auto) 0.7 (0.0-0.9) th/mm3 Eos # (Auto) 0.1 (0.0-0.4) th/mm3 Baso # (Auto) 0.1 (0.0-0.2) th/mm3 WBC Differential . Differential Comment Auto diff final Hematology Comments Sodium 141 (136-145) meq/L Potassium 3.9 (3.5-5.1) meq/L Chloride 107 (98-107) meq/L Carbon Dioxide 25.8 (21.0-32.0) meq/L Anion Gap 8 (5-15) meq/L BUN 16 (7-18) mg/dL Creatinine 1.09 (0.60-1.30) mg/dL Estimated GFR 73 L (>89) mL/min Random Glucose 122 H (74-106) mg/dL Calcium 8.4 L (8.5-10.1) mg/dL Magnesium 1.8 (1.5-2.5) mg/dL Total Bilirubin 0.1 L (0.2-1.0) mg/dL AST 18 (15-37) U/L ALT 14 (12-78) U/L Alkaline Phosphatase 81 (45-117) U/L Total Protein 5.8 L (6.4-8.2) g/dL Albumin 2.4 L (3.4-5.0) g/dL TSH 2.310 (0.358-3.740) uIU/mL Urine Color (Yellw/Straw) Urine Clarity (Clear) Urine pH (5.0-8.5) Ur Specific [place] (1.002-1.035) Urine Protein (Neg-Trace) mg/dL Urine Glucose (UA) (Negative) mg/dL Urine Ketones (Negative) mg/dL Urine Occult Blood (Negative) Urine Nitrate (Negative) Urine Bilirubin (Negative) Urine Urobilinogen (Less than 2) mg/dL Ur Leukocyte Esterase (Negative) Urine RBC (0-3) /hpf Urine WBC (0-5) /hpf Urine Bacteria (None) /hpf Hyaline Casts (0-3) /lpf Urine Mucus (Occasional) /lpf Micro UA Comment Ur Microscopic Review Urine Culture Comments Urine Opiates Screen Neg (Neg) Ur Barbiturates Screen Neg (Neg) Ur Amphetamines Screen Pos H (Neg) U Benzodiazepines Scrn Neg (Neg) Urine Cocaine Screen Neg (Neg) U Cannabinoids Screen Neg (Neg) Serum Alcohol Less than 3 (0-5) mg/dL Blood Type Antibody Screen 05/28/18 05/28/18 05/28/18 Range/Units 10:25 16:40 20:38 WBC (4.0-11.0) th/mm3 RBC (4.50-5.90) mil/mm3 Hgb 9.4 L (13.0-17.0) gm/dL Hct 28.4 L (39.0-51.0) % MCV (80.0-100.0) fL MCH (27.0-34.0) pg MCHC (32.0-36.0) % RDW (11.6-17.2) % Plt Count (150-450) th/mm3 MPV (7.0-11.0) fL Neut % (Auto) (16.0-70.0) % Lymph % (Auto) (9.0-44.0) % [place] % (Auto) (0.0-8.0) % Eos % (Auto) (0.0-4.0) % Baso % (Auto) (0.0-2.0) % Neut # (Auto) (1.8-7.7) th/mm3 Lymph # (Auto) (1.0-4.8) th/mm3 [place] # (Auto) (0.0-0.9) th/mm3 Eos # (Auto) (0.0-0.4) th/mm3 Baso # (Auto) (0.0-0.2) th/mm3 WBC Differential Differential Comment Hematology Comments Sodium (136-145) meq/L Potassium (3.5-5.1) meq/L Chloride (98-107) meq/L Carbon Dioxide (21.0-32.0) meq/L Anion Gap (5-15) meq/L BUN (7-18) mg/dL Creatinine (0.60-1.30) mg/dL Estimated GFR (>89) mL/min Random Glucose (74-106) mg/dL Calcium (8.5-10.1) mg/dL Magnesium (1.5-2.5) mg/dL Total Bilirubin (0.2-1.0) mg/dL AST (15-37) U/L ALT (12-78) U/L Alkaline Phosphatase (45-117) U/L Total Protein (6.4-8.2) g/dL Albumin (3.4-5.0) g/dL TSH (0.358-3.740) uIU/mL Urine Color Straw (Yellw/Straw) Urine Clarity Clear (Clear) Urine pH 6.0 (5.0-8.5) Ur Specific [place] 1.008 (1.002-1.035) Urine Protein Negative (Neg-Trace) mg/dL Urine Glucose (UA) Negative (Negative) mg/dL Urine Ketones Negative (Negative) mg/dL Urine Occult Blood Negative (Negative) Urine Nitrate Negative (Negative) Urine Bilirubin Negative (Negative) Urine Urobilinogen Less than 2 (Less than 2) mg/dL Ur Leukocyte Esterase Negative (Negative) Urine RBC Less than 1 (0-3) /hpf Urine WBC 1 (0-5) /hpf Urine Bacteria Rare H (None) /hpf Hyaline Casts 3 (0-3) /lpf Urine Mucus Few H (Occasional) /lpf Micro UA Comment Culture not ind Ur Microscopic Review Not Reportable Urine Culture Comments Culture not ind Urine Opiates Screen (Neg) Ur Barbiturates Screen (Neg) Ur Amphetamines Screen (Neg) U Benzodiazepines Scrn (Neg) Urine Cocaine Screen (Neg) U Cannabinoids Screen (Neg) Serum Alcohol (0-5) mg/dL Blood Type B Positive Antibody Screen Negative 05/29/18 05/29/18 05/29/18 Range/Units 02:31 02:31 02:31 WBC 7.5 (4.0-11.0) th/mm3 RBC 3.14 L (4.50-5.90) mil/mm3 Hgb Cancelled 8.8 L (13.0-17.0) gm/dL Hct Cancelled 25.9 L (39.0-51.0) % MCV 82.6 (80.0-100.0) fL MCH 28.0 (27.0-34.0) pg MCHC 33.9 (32.0-36.0) % RDW 17.0 (11.6-17.2) % Plt Count 338 (150-450) th/mm3 MPV 7.1 (7.0-11.0) fL Neut % (Auto) 78.2 H (16.0-70.0) % Lymph % (Auto) 11.5 (9.0-44.0) % [place] % (Auto) 8.8 H (0.0-8.0) % Eos % (Auto) 1.2 (0.0-4.0) % Baso % (Auto) 0.3 (0.0-2.0) % Neut # (Auto) 5.8 (1.8-7.7) th/mm3 Lymph # (Auto) 0.9 L (1.0-4.8) th/mm3 [place] # (Auto) 0.7 (0.0-0.9) th/mm3 Eos # (Auto) 0.1 (0.0-0.4) th/mm3 Baso # (Auto) 0.0 (0.0-0.2) th/mm3 WBC Differential . Differential Comment Auto diff final Hematology Comments Cancelled Sodium 141 (136-145) meq/L Potassium 4.1 (3.5-5.1) meq/L Chloride 110 H (98-107) meq/L Carbon Dioxide 25.7 (21.0-32.0) meq/L Anion Gap 5 (5-15) meq/L BUN 11 (7-18) mg/dL Creatinine 0.82 (0.60-1.30) mg/dL Estimated GFR Greater than 89 (>89) mL/min Random Glucose 97 (74-106) mg/dL Calcium 8.0 L (8.5-10.1) mg/dL Magnesium (1.5-2.5) mg/dL Total Bilirubin 0.2 (0.2-1.0) mg/dL AST 13 L (15-37) U/L ALT 13 (12-78) U/L Alkaline Phosphatase 77 (45-117) U/L Total Protein 5.5 L (6.4-8.2) g/dL Albumin 2.2 L (3.4-5.0) g/dL TSH (0.358-3.740) uIU/mL Urine Color (Yellw/Straw) Urine Clarity (Clear) Urine pH (5.0-8.5) Ur Specific [place] (1.002-1.035) Urine Protein (Neg-Trace) mg/dL Urine Glucose (UA) (Negative) mg/dL Urine Ketones (Negative) mg/dL Urine Occult Blood (Negative) Urine Nitrate (Negative) Urine Bilirubin (Negative) Urine Urobilinogen (Less than 2) mg/dL Ur Leukocyte Esterase (Negative) Urine RBC (0-3) /hpf Urine WBC (0-5) /hpf Urine Bacteria (None) /hpf Hyaline Casts (0-3) /lpf Urine Mucus (Occasional) /lpf Micro UA Comment Ur Microscopic Review Urine Culture Comments Urine Opiates Screen (Neg) Ur Barbiturates Screen (Neg) Ur Amphetamines Screen (Neg) U Benzodiazepines Scrn (Neg) Urine Cocaine Screen (Neg) U Cannabinoids Screen (Neg) Serum Alcohol (0-5) mg/dL Blood Type Antibody Screen 05/29/18 Range/Units 09:39 WBC (4.0-11.0) th/mm3 RBC (4.50-5.90) mil/mm3 Hgb 9.4 L (13.0-17.0) gm/dL Hct 28.1 L (39.0-51.0) % MCV (80.0-100.0) fL MCH (27.0-34.0) pg MCHC (32.0-36.0) % RDW (11.6-17.2) % Plt Count (150-450) th/mm3 MPV (7.0-11.0) fL Neut % (Auto) (16.0-70.0) % Lymph % (Auto) (9.0-44.0) % [place] % (Auto) (0.0-8.0) % Eos % (Auto) (0.0-4.0) % Baso % (Auto) (0.0-2.0) % Neut # (Auto) (1.8-7.7) th/mm3 Lymph # (Auto) (1.0-4.8) th/mm3 [place] # (Auto) (0.0-0.9) th/mm3 Eos # (Auto) (0.0-0.4) th/mm3 Baso # (Auto) (0.0-0.2) th/mm3 WBC Differential Differential Comment Hematology Comments Sodium (136-145) meq/L Potassium (3.5-5.1) meq/L Chloride (98-107) meq/L Carbon Dioxide (21.0-32.0) meq/L Anion Gap (5-15) meq/L BUN (7-18) mg/dL Creatinine (0.60-1.30) mg/dL Estimated GFR (>89) mL/min Random Glucose (74-106) mg/dL Calcium (8.5-10.1) mg/dL Magnesium (1.5-2.5) mg/dL Total Bilirubin (0.2-1.0) mg/dL AST (15-37) U/L ALT (12-78) U/L Alkaline Phosphatase (45-117) U/L Total Protein (6.4-8.2) g/dL Albumin (3.4-5.0) g/dL TSH (0.358-3.740) uIU/mL Urine Color (Yellw/Straw) Urine Clarity (Clear) Urine pH (5.0-8.5) Ur Specific [place] (1.002-1.035) Urine Protein (Neg-Trace) mg/dL Urine Glucose (UA) (Negative) mg/dL Urine Ketones (Negative) mg/dL Urine Occult Blood (Negative) Urine Nitrate (Negative) Urine Bilirubin (Negative) Urine Urobilinogen (Less than 2) mg/dL Ur Leukocyte Esterase (Negative) Urine RBC (0-3) /hpf Urine WBC (0-5) /hpf Urine Bacteria (None) /hpf Hyaline Casts (0-3) /lpf Urine Mucus (Occasional) /lpf Micro UA Comment Ur Microscopic Review Urine Culture Comments Urine Opiates Screen (Neg) Ur Barbiturates Screen (Neg) Ur Amphetamines Screen (Neg) U Benzodiazepines Scrn (Neg) Urine Cocaine Screen (Neg) U Cannabinoids Screen (Neg) Serum Alcohol (0-5) mg/dL Blood Type Antibody Screen Imaging Data Radiologist's impression: Abdomen/Pelvis CT 05/28/18 16:05 CONCLUSION: 1. There is persistent fat and soft tissue density in the right inguinal region suggesting persistent bowel in right inguinal hernia. There is also a focal fluid collection superior to the inguinal region in the subcutaneous tissues. 2. Large hiatus hernia with intrathoracic position of the gastric fundus. 3. No dilated loops of small or large bowel. 4. Persistent right-sided hydronephrosis and dilation of the extrarenal pelvis. Head CT 05/28/18 16:05 CONCLUSION: 1. Negative noncontrast CT brain. . Discharge Plan Discharge Disposition Patient Disposition: ED Admit(ED Internal Use Only) Discharge Condition Condition: Fair Discharge Order Discharge Orders: ED Use Only Admit Order (Routine); Ordered 05/28/18 Ordered By: Quintin Horne Discharge Details Diagnosis: Upper gastrointestinal hemorrhage, Acute blood loss anemia Physicians Team ED Provider: Quintin Horne Primary Care Provider: UNKNOWN, Attending Provider: Stan Bales Other Providers: Aleks Clarke V ; Gaudencio Parker Status ED Status: Left Department Discharge Information Discharge Date/Time: 05/28/18 18:00
[2018-05-28 09:36] LABS: Baso # (Auto) 0.1 th/mm3 (0.0-0.2); Baso % (Auto) 0.6 % (0.0-2.0); Eos # (Auto) 0.1 th/mm3 (0.0-0.4); Eos % (Auto) 1.6 % (0.0-4.0); Hematocrit 23.4 % (39.0-51.0); Hemoglobin 7.9 gm/dL (13.0-17.0); Lymph # (Auto) 0.7 th/mm3 (1.0-4.8); Lymph % (Auto) 7.8 % (9.0-44.0); Mean Corpuscular HGB Conc 33.8 % (32.0-36.0); Mean Corpuscular Hemoglobin 27.9 pg (27.0-34.0); Mean Corpuscular Volume 82.6 fL (80.0-100.0); Mean Platelet Volume 7.1 fL (7.0-11.0); Mono # (Auto) 0.7 th/mm3 (0.0-0.9); Mono % (Auto) 8.2 % (0.0-8.0); Neut % (Auto) 81.8 % (16.0-70.0); Platelet Count 329 th/mm3 (150-450); Red Blood Count 2.83 mil/mm3 (4.50-5.90); White Blood Count 8.5 th/mm3 (4.0-11.0)
[2018-05-28 09:56] LABS: Alanine Aminotransferase 14 U/L (12-78); Albumin 2.4 g/dL (3.4-5.0); Anion Gap 8 meq/L (5-15); Aspartate Aminotransferase 18 U/L (15-37); Blood Urea Nitrogen 16 mg/dL (7-18); Calcium 8.4 mg/dL (8.5-10.1); Carbon Dioxide 25.8 meq/L (21.0-32.0); Chloride 107 meq/L (98-107); Glomerular Filtration Rate 73 mL/min (>89); Glucose,Random 122 mg/dL (74-106); Magnesium 1.8 mg/dL (1.5-2.5); Potassium 3.9 meq/L (3.5-5.1); Sodium 141 meq/L (136-145)
[2018-05-28 10:06] LABS: Alkaline Phosphatase 81 U/L (45-117); Total Protein 5.8 g/dL (6.4-8.2)
[2018-05-28 10:58] LABS: Bacteria,Urine Rare /hpf; Bilirubin,Urine Negative (Negative); Clarity,Urine Clear (Clear); Color,Urine Straw (Yellw/Straw); Glucose,Urine (UA) Negative (Negative); Hyaline Casts,Urine 3 /lpf (0-3); Leukocyte Esterase,Urine Negative (Negative); Mucus,Urine Few /lpf (Occasional); Nitrite,Urine Negative (Negative); Specific Gravity,Urine 1.008 (1.002-1.035)
[2018-05-28 11:02] LABS: Amphetamine Screen,Urine Pos (Neg); Barbiturate Screen,Urine Neg (Neg); Cannabinoid Screen,Urine Neg (Neg); Cocaine Screen,Urine Neg (Neg)
[2018-05-28 11:03] LABS: Opiate Screen,Urine Neg (Neg)
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
--- NOTE | 2018-05-28 17:45 | CT ---
EXAM DATE: 05/28/2018 5:43 PM EST AGE/SEX: 47 years / Male INDICATIONS: Altered mental status. CLINICAL DATA: This is the patient's initial encounter. Patient reports that signs and symptoms have been present for 1 day and indicates a pain score of 0/10. MEDICAL/SURGICAL HISTORY: . Esophageal varices. None. RADIATION DOSE: 53.21 CTDI (mGy) COMPARISON: No prior exams available for comparison. TECHNIQUE: CT of the head without contrast. Using automated exposure control and adjustment of the mA and/or kV according to patient size, radiation dose was kept as low as reasonably achievable to ob tain optimal diagnostic quality images. DICOM format image data is available electronically for revi ew and comparison. FINDINGS: Cerebrum: The ventricles are normal for age. No evidence of midline shift, mass lesion, hemorrhage or acute infarction. No extraaxial fluid collections are seen. Posterior Fossa: The cerebellum and brainstem are intact. The 4th ventricle is midline. The cerebe llopontine angle is unremarkable. Extracranial: The visualized portion of the orbits is intact. Skull: The calvaria is intact. No evidence of skull fracture. CONCLUSION: 1. Negative noncontrast CT brain. . Electronically signed by: Lexx Sung MD Board Certified Radiologist 05/28/2018 5:43 PM EST
[2018-05-28] MEDS: Sucralfate 1 GM Tablet PO SCH ×2 (17:53→22:27)
[2018-05-28] MEDS: Sod Chloride 0.9% Inj 1,000 ML IV.CONT SCH (17:53)
--- NOTE | 2018-05-28 18:03 | CT ---
EXAM DATE: 05/28/2018 5:55 PM EST AGE/SEX: 47 years / Male INDICATIONS: Abdominal pain. CLINICAL DATA: This is the patient's initial encounter. Patient reports that signs and symptoms have been present for 1 day and indicates a pain score of 5/10. MEDICAL/SURGICAL HISTORY: . Esophageal varices. None. RADIATION DOSE: 4.92 CTDI (mGy) COMPARISON: [facility], CT ABDOMEN & PELVIS W/O CONTRAST, 05/17/2018. . TECHNIQUE: Multiple contiguous axial images were obtained through the abdomen. Images were obtained using multiple row detector helical technique. Using automated exposure control and adjustment of the mA and/or kV according to patient size, radiation dose was kept as low as reasonably achievable to o btain optimal diagnostic quality images. DICOM format image data is available electronically for rev iew and comparison. FINDINGS: Prior CT on today's/06/30 demonstrated herniation of small bowel into a right inguinal hernia and mult iple dilated loops of small and large bowel. On today's examination, there is still a soft tissue and fat density within the right inguinal canal is similar in size to prior examination and extending in to the hemiscrotum. There is induration and thickening of the soft tissues about the right inguinal r egion and there is questionable herniation of a loop of bowel through the inguinal region best seen o n axial image #71. There is also a subcutaneous fluid density superior to the inguinal region which m easures 5.5 x 1.6 cm. Has the patient had interval surgery? There is a mild amount of free fluid in t he dependent pelvis. No dilated loops of small or large bowel. There is distention of the extrarenal pelvis and dilation of the collecting system of the right kidney, similar to prior. No calcified ston es. No evidence of hydronephrosis on the left side. Large hiatus hernia with intrathoracic position to the fundus of the stomach. No evidence of pleural effusion. The visualized lower lungs are clear. No calcified gallstones. CONCLUSION: 1. There is persistent fat and soft tissue density in the right inguinal region suggesting persisten t bowel in right inguinal hernia. There is also a focal fluid collection superior to the inguinal reg ion in the subcutaneous tissues. 2. Large hiatus hernia with intrathoracic position of the gastric fundus. 3. No dilated loops of small or large bowel. 4. Persistent right-sided hydronephrosis and dilation of the extrarenal pelvis. Electronically signed by: Lexx Sung MD Board Certified Radiologist 05/28/2018 6:02 PM EST
[2018-05-28 21:26] LABS: Hematocrit 28.4 % (39.0-51.0); Hemoglobin 9.4 gm/dL (13.0-17.0)
[2018-05-28] MEDS: Pantoprazole Inj 40 MG Vial IV.PUSH SCH (22:28)
[2018-05-29] MEDS: Sod Chloride 0.9% Inj 1,000 ML IV.CONT SCH ×3 (02:17→22:34)
[2018-05-29 02:45] LABS: Baso % (Auto) 0.3 % (0.0-2.0); Eos # (Auto) 0.1 th/mm3 (0.0-0.4); Eos % (Auto) 1.2 % (0.0-4.0); Hematocrit 25.9 % (39.0-51.0); Hemoglobin 8.8 gm/dL (13.0-17.0); Lymph # (Auto) 0.9 th/mm3 (1.0-4.8); Lymph % (Auto) 11.5 % (9.0-44.0); Mean Corpuscular HGB Conc 33.9 % (32.0-36.0); Mean Corpuscular Volume 82.6 fL (80.0-100.0); Mean Platelet Volume 7.1 fL (7.0-11.0); Mono # (Auto) 0.7 th/mm3 (0.0-0.9); Mono % (Auto) 8.8 % (0.0-8.0); Neut # (Auto) 5.8 th/mm3 (1.8-7.7); Neut % (Auto) 78.2 % (16.0-70.0); Platelet Count 338 th/mm3 (150-450); Red Blood Count 3.14 mil/mm3 (4.50-5.90); White Blood Count 7.5 th/mm3 (4.0-11.0)
[2018-05-29 03:15] LABS: Albumin 2.2 g/dL (3.4-5.0); Anion Gap 5 meq/L (5-15); Aspartate Aminotransferase 13 U/L (15-37); Blood Urea Nitrogen 11 mg/dL (7-18); Carbon Dioxide 25.7 meq/L (21.0-32.0); Chloride 110 meq/L (98-107); Glomerular Filtration Rate Greater Than 89 mL/min (>89); Glucose,Random 97 mg/dL (74-106); Potassium 4.1 meq/L (3.5-5.1); Sodium 141 meq/L (136-145)
[2018-05-29 03:18] LABS: Alanine Aminotransferase 13 U/L (12-78); Alkaline Phosphatase 77 U/L (45-117); Total Protein 5.5 g/dL (6.4-8.2)
[2018-05-29] MEDS: Pantoprazole Inj 40 MG Vial IV.PUSH SCH (09:29)
[2018-05-29] MEDS: Sucralfate 1 GM Tablet PO SCH ×4 (09:29→20:06)
[2018-05-29] MEDS ORDERED: Pantoprazole Inj 80 MG in Sodium Chlor 0.9% Inj 100 ML IV.CONT SCH (10:00)
[2018-05-29 10:17] LABS: Hematocrit 28.1 % (39.0-51.0); Hemoglobin 9.4 gm/dL (13.0-17.0)
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
[2018-05-29] MEDS ORDERED: Phenylephrine/NS 1000 MCG/10ML Syringe IV.PUSH ONE (12:00)
[2018-05-29] MEDS ORDERED: Lidocaine PF 1% Inj 5 ML Syringe INFILTRATN ONE (12:00)
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
--- NOTE | 2018-05-29 12:47 | GIPROC ---
[facility] [address] [facility]. [facility], [address] EGD PROCEDURE REPORT EXAM DATE: 05/29/2018 PATIENT NAME: Marleen Lance MR #: [id number] BIRTHDATE: 1970 ATTENDING: Aleks Clarke MD ORDER #: [id number] RANGE EXAMINER: Ana Ambriz and Heather Toro STATUS: inpatient INDICATIONS: The patient is a 47 yr old male here for an EGD due to H/O of GERD, Barretts, suspected malignancy PROCEDURE PERFORMED: EGD, diagnostic MEDICATIONS: Per Anesthesia and None. TOPICAL ANESTHETIC: none CONSENT: The patient understands the risks and benefits of the procedure and understands that these risks include, but are not limited to: sedation, allergic reaction, infection, perforation and/or bleeding. Alternative means of evaluation and treatment include, among others: physical exam, x-rays, and/or surgical intervention. The patient elects to proceed with this endoscopic procedure. medical equipment was checked for proper function. Hand hygiene and appropriate measures for infection prevention was taken. After the risks, benefits and alternatives of the procedure were thoroughly explained, Informed consent was verified, confirmed and timeout was successfully executed by the treatment team. The patient was anesthetized with topical anesthesia and the Pentax EG-[id number] endoscope was introduced through the mouth and advanced to the second portion of the duodenum. Retroflexed views revealed no abnormalities The gastroscope was then slowly withdrawn and removed. ESOPHAGUS: There was LA Class D esophagitis noted. There was a short benign appearing stricture in the distal esophagus and 40 cm from the incisors. The stricture was traversable. STOMACH: The mucosa of the stomach appeared normal. DUODENUM: Bulb deformed. The duodenal mucosa appeared normal in the 2nd part of the duodenum. ADVERSE EVENTS: There were no complications. IMPRESSIONS: 1. There was LA Class D esophagitis noted 2. There was a short stricture in the distal esophagus and 40 cm from the incisors 3. The mucosa of the stomach appeared normal 4. Bulb deformed 5. Normal duodenal mucosa in the 2nd part of the duodenum 6. Retroflexed views revealed no abnormalities RECOMMENDATIONS: Protonix 40 BID PATIENT CONDITION: stable DISPOSITION: Inpatient REPEAT EXAM: Return 3 months EGD Aleks Clarke MD eSigned: Aleks Clarke MD 05/29/2018 12:46 PM cc: PATIENT NAME: Marleen Lance MR#: [id number]
[2018-05-29] MEDS: Propranolol 10 MG Tablet PO SCH ×2 (14:08→17:33)
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
[2018-05-29] MEDS ORDERED: Pantoprazole Inj 40 MG Vial IV.PUSH SCH (21:00)
[2018-05-30] MEDS: Propranolol 10 MG Tablet PO SCH ×3 (08:43→18:08)
[2018-05-30] MEDS: Sucralfate 1 GM Tablet PO SCH (08:43)
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
[2018-05-30 11:40] LABS: Baso % (Auto) 0.2 % (0.0-2.0); Eos % (Auto) 0.4 % (0.0-4.0); Hematocrit 26.6 % (39.0-51.0); Hemoglobin 8.8 gm/dL (13.0-17.0); Lymph # (Auto) 0.5 th/mm3 (1.0-4.8); Lymph % (Auto) 4.8 % (9.0-44.0); Mean Corpuscular Hemoglobin 27.6 pg (27.0-34.0); Mean Corpuscular Volume 83.7 fL (80.0-100.0); Mean Platelet Volume 7.3 fL (7.0-11.0); Mono # (Auto) 0.8 th/mm3 (0.0-0.9); Mono % (Auto) 7.5 % (0.0-8.0); Neut # (Auto) 9.5 th/mm3 (1.8-7.7); Neut % (Auto) 87.1 % (16.0-70.0); Platelet Count 306 th/mm3 (150-450); Red Blood Count 3.18 mil/mm3 (4.50-5.90); Red Cell Distribution Width 17.5 % (11.6-17.2); White Blood Count 10.9 th/mm3 (4.0-11.0)
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
[2018-05-31 08:30] LABS: Baso % (Auto) 0.6 % (0.0-2.0); Eos # (Auto) 0.2 th/mm3 (0.0-0.4); Eos % (Auto) 2.7 % (0.0-4.0); Hematocrit 26.9 % (39.0-51.0); Lymph # (Auto) 0.6 th/mm3 (1.0-4.8); Lymph % (Auto) 9.7 % (9.0-44.0); Mean Corpuscular HGB Conc 33.5 % (32.0-36.0); Mean Corpuscular Hemoglobin 27.9 pg (27.0-34.0); Mean Corpuscular Volume 83.1 fL (80.0-100.0); Mean Platelet Volume 7.4 fL (7.0-11.0); Mono # (Auto) 0.8 th/mm3 (0.0-0.9); Neut # (Auto) 4.5 th/mm3 (1.8-7.7); Platelet Count 317 th/mm3 (150-450); Red Blood Count 3.23 mil/mm3 (4.50-5.90); Red Cell Distribution Width 16.6 % (11.6-17.2)
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
[2018-05-31] MEDS: Propranolol 10 MG Tablet PO SCH (09:19)
[2018-05-31 10:12] VITALS: BP 123/68; PULSE 75; RESP 19; TEMP 98.4; O2SAT 100
== END 2018-05-31 10:28 | disposition home or self-care (01) | DRG 378 ==
LOC: NEPE 08:22 → NEDA 16:32 → N07 18:00
PROVIDERS: ADMIT Hospitalist; ATTEND Hospitalist
PROC: PANENDO (2018-05-29 12:00)
DX: K92.1 Melena; F15.129 Other stimulant abuse with intoxication, unspecified; F15.159 Other stimulant abuse with stimulant-induced psychotic disorder, unspecified; K21.0 Gastro-esophageal reflux disease with esophagitis; H54.62 Unqualified visual loss, left eye, normal vision right eye; F20.9 Schizophrenia, unspecified; K22.2 Esophageal obstruction; F41.9 Anxiety disorder, unspecified; D62 Acute posthemorrhagic anemia; Z91.14 Patient's other noncompliance with medication regimen; G25.71 Drug induced akathisia; K22.70 Barrett's esophagus without dysplasia
CPT/HCPCS: 70450; 74176; 80053; 80307; 81001; 83735; 84443; 85014; 85018; 85025; 86850; 86900; 86901; 90772; 90782; 96372; 99285; C9113; C9204; J2060; J2370; J2704; J3486; J7030